=== PATIENT | female | born 2000 | race Caucasian/White ===

== ENCOUNTER 2022-04-10 11:27 | Emergency (ER) | payer OTHER, MEDICAID, SELFPAY ==
[2022-04-10 13:04] VITALS: BP 114/77; PULSE 130; RESP 20; TEMP 37.2; O2SAT 99
--- NOTE | 2022-04-10 13:40 | ED.URI ---
HPI - URI/Sore Throat General Chief Complaint: Upper Respiratory Infection Stated Complaint: bodyaches,cough,sorethroat Time Seen by Provider: 04/10/22 13:10 Source: patient Mode of arrival: ambulatory Limitations: no limitations History of Present Illness HPI Narrative: Chest is a 21-year-old female patient presenting to clinic today with complaints of body aches, cough, sore throat, mild shortness of breath with some chest tightness. She reports she does have a history of asthma. Has productive cough with yellow phlegm. MD elicited complaint: sore throat and nasal congestion Related Data Home Medications Medication Instructions Recorded Confirmed albuterol sulfate 90 mcg/actuation 1 puff inhalation PRN 04/10/22 04/10/22 aerosol inhaler Allergies Allergy/AdvReac Type Severity Reaction Status Date / Time No Known Allergies Allergy Verified 04/10/22 13:08 Review of Systems Review of Systems: Pertinent positives per HPI. Patient denies any fever, chills, rash, headache, visual changes, dizziness, chest pain, palpitations, nausea, vomiting, diarrhea, constipation, abdominal pain, or any urinary issues. PMFSH Comments At the time of my signature, I reviewed and agree with the nursing past medical, surgical, social, and family history. There is no relevant family history pertinent to the patient complaint. Exam Narrative: General: Well-developed, well nourished, in no apparent distress Head: Normocephalic, atraumatic Eyes: Pupils equally round and reactive to light bilaterally, EOM intact, sclera and conjunctive clear, no discharge, lids normal Ears: TMs intact and clear, ear canals clear, no drainage, grossly hearing normal. Nose: Nares patent, clear nasal discharge, no inflammation, no sinus tenderness. Mouth: Oral pharynx without lesions or masses, good dentition, MMM. Oropharynx red Neck: Supple, trachea midline, mild enlargement of anterior or posterior cervical nodes, no thyroid masses or goiter palpable. Cardio: Regular rate and rhythm, s1 and s2 normal, no murmur appreciated. Resp: Lung sounds diminished in the bases otherwise clear no rhonchi, rales, wheezing or rubs Course Course Emergency Course: Portions of this record may have been created with voice recognition software. Level of Care: Express Care Visit Vital Signs Vital signs: Vital Signs Temperature 37.2 C 04/10/22 13:04 Pulse Rate 130 H 04/10/22 13:04 Respiratory Rate 20 04/10/22 13:04 Blood Pressure 114/77 04/10/22 13:04 Pulse Oximetry 99 04/10/22 13:04 Oxygen Delivery Room Air 04/10/22 13:04 Temperature 37.2 C 04/10/22 13:04 Pulse Rate 130 H 04/10/22 13:04 Respiratory Rate 20 04/10/22 13:04 Blood Pressure 114/77 04/10/22 13:04 Pulse Oximetry 99 04/10/22 13:04 Oxygen Delivery Room Air 04/10/22 13:04 Vital signs reviewed MDM - URI/Sore Throat MDM Narrative Medical decision making narrative: At the time of the patient is resting comfortably on the exam table. She has lost her voice and sounds very congested. COVID, flu, and strep test were all negative in the clinic today. I suspect patient has bronchitis. Prescription for prednisone, azithromycin, and albuterol was sent to the pharmacy. Differential Diagnosis Differential diagnosis: Likely upper respiratory infection, otitis media, sinusitis, viral infection, bronchitis, influenza, pharyngitis and other (COVID) Discharge Plan Discharge Clinical Impression: Bronchitis Patient Disposition: Home, Self-Care Condition: Stable Instructions: Antibiotic Form, Acute Bronchitis (ED) Additional Instructions: Take prescription medications only as prescribed-azithromycin, prednisone, and albuterol inhaler Increase fluids and stay well hydrated Tylenol/motrin for pain/fever Flonase and OTC antihistamines as directed Vicks vapor rub to open sinuses Sinus rinses for congestion Cepacol spray, cough drops, throat loze
== END 2022-04-10 13:50 | disposition home or self-care (01) ==
PROVIDERS: Emergency Provider Nurse Practitioner Family
DX: J40 Bronchitis, not specified as acute or chronic (principal); Z20.822 Contact with and (suspected) exposure to COVID-19; J45.909 Unspecified asthma, uncomplicated
CPT/HCPCS: 87426; 87804; 87880; 99203; C9803; G0463

== ENCOUNTER 2023-08-04 11:05 | Emergency (ER) | payer MEDICAID, SELFPAY ==
[2023-08-04 11:18] VITALS: BP 117/88; PULSE 120; RESP 18; TEMP 36.9; O2SAT 100
--- NOTE | 2023-08-04 11:22 | ED.URI ---
HPI - URI/Sore Throat General Chief Complaint: Upper Respiratory Infection Stated Complaint: Cough,Shortness of Breath,Headadche,Body Pain Time Seen by Provider: 08/04/23 11:23 Source: patient, RN notes reviewed and old records reviewed Mode of arrival: ambulatory Limitations: no limitations History of Present Illness HPI Narrative: 23-year-old female presents to the [facility] with complaints of cough, shortness of breath, headache body aches. Symptoms started Sunday night however symptoms worse on 2 days ago. Has taken ibuprofen and taking cough drops. No other treatment prior to arrival Related Data Home Medications Medication Instructions Recorded Confirmed albuterol 90 mcg/actuation aerosol mcg inhalation 08/04/23 inhaler Allergies Allergy/AdvReac Type Severity Reaction Status Date / Time No Known Allergies Allergy Verified 08/04/23 11:26 Review of Systems Review of Systems: All systems reviewed & are unremarkable except as noted in HPI and below Constitutional: Constitutional: Reports as per HPI, Reports body ache(s) and Reports headache(s) Eyes: Eyes: Reports no additional eye complaints ENT: Reports as per HPI, Reports nasal discharge and Reports sore throat Cardiovascular: Cardiovascular: Reports no additional cardiovascular complaints, Denies chest pain and Denies dyspnea Respiratory: Respiratory: Reports as per HPI, Denies chest congestion, Reports cough, Reports dyspnea (Only after a coughing fit), Denies snoring, Denies stridor and Denies wheezing Gastrointestinal: Gastrointestinal: Reports no additional gastrointestinal complaints, Denies abdominal pain, Denies nausea and Denies vomiting Musculoskeletal: Musculoskeletal: Reports no additional musculoskeletal complaints Integumentary/Breasts: Skin/Breast: Reports system reviewed and no additional complaints, except as docu Neurologic: Reports system reviewed and no additional complaints, except as documented Psychiatric: Psychiatric: Reports no additional psychiatric complaints Allergic/Immunologic: Allergic/Immunologic: Reports no additional allergic/immunologic complaints [facility] Past Medical History Medical History (Updated 08/04/23 @ 13:00 by April Hernández APRN) Asthma Surgical History Surgical History (Updated 08/04/23 @ 13:00 by April Hernández APRN) History of orthopedic surgery Right leg Comments At the time of my signature, I reviewed and agree with the nursing past medical, surgical, social, and family history. There is no relevant family history pertinent to the patient complaint. Exam Const: General: cooperative, healthy appearing, comfortable, no acute distress, well developed, alert and well nourished Nutritional Appearance: well nourished Orientation/consciousness: patient oriented x3 Limitations: no limitations HENMT: Head: normal to inspection Ears: hearing grossly normal bilaterally, external ears normal, EAC's normal and TM abnormal with fluid behind the TM bilateral; not bulging and not erythematous Face/Nose/Sinus: Normal external nose present, Normal nares present, Normal nasal mucous membranes and turbinates present, Nasal discharge present clear bilateral, normal facial exam and face symmetric Face and sinus: normal facial exam, sinuses nontender, face symmetric, no erythema and no edema Mouth: Yes Normal oral and palatal mucosa present, Yes lip normal and Yes moist mucous membranes Throat: posterior oropharynx normal, tonsils normal, uvula midline, postnasal drainage and no uvular edema Eyes: General: appearance normal, both eyes and all related structures Alignment and Position: alignment normal Periorbital: periorbital findings normal Pupils: Equal, round and reactive pupils present EOM: EOMs intact bilaterally Neck: Neck: normal visual inspection, full ROM, no lymphadenopathy and no meningeal signs Chest: Chest palpation & inspection: normal inspection of the chest Resp: Effort
== END 2023-08-04 11:58 | disposition home or self-care (01) ==
PROVIDERS: Emergency Provider Nurse Practitioner
DX: J06.9 Acute upper respiratory infection, unspecified (principal); J45.909 Unspecified asthma, uncomplicated; Z20.822 Contact with and (suspected) exposure to COVID-19
CPT/HCPCS: 87081; 87426; 87804; 87880; 99213; G0463

== ENCOUNTER 2024-12-15 12:38 | Emergency (ER) | payer MEDICAID, SELFPAY ==
--- OUTSIDE RECORDS SUMMARY | 2024-12-15 12:42 | XMS_ITS | Encounter Summary ---
Author Organization [facility] Address [address] [place] [address] Care Team Providers Care Stretch Press Operator Name Role Phone Thomas Grant MD Primary Care Provider Unasparkle ilable Encounter Details Date Type Department Care Team (Late st Contact Info) Description 06/26/2006 Orders Only [facility] - [facility] [address] [id number] [facility] [address] [place] [address] Thomas Grant MD NO ADDRESS ON FILE Social History Tobacco Use Types Packs/Day Years Used Date Smoking Tobacco: Never Assessed Comments Unknown Sex and Gender Information Value Date Recorded Sex Assigned at Not on file Legal Sex Female 2:47 AM MULTIFOCAL LENS INSPECTOR Gender Identity Not on file Sexual Orientation Not on file documented as of this encounter Progress Notes * Thomas Grant MD - 08/30/2007 12:28 PM CDT PATIENT'S AGE: 6 yrs, 0 mths, 2 wks, 4 days VITALS: TEMP: 97.8??f Axillary PULSE: 96 Apical, Regular RESPIRATIONS: 20. WEIGHT: 42lbs NURSE NAME: Ashley Clemente A ACCOMPANIED BY: Mother. ALLERGIES: CURRENT ALLERGY LIST: NKDA MEDICATIONS: singulair, alb. neb CHIEF COMPLAINT: The child is here for follow up of lungs. HISTORY: Discharged from [facility] 1 week ago after treatment of asthma exacerbation. Doing very well with no cough or wheezing; eating, sleeping and playing well. PHYSICAL EXAM: CONSTITUTIONAL: GENERAL APPEARANCE: Healthy appearing, alert patient, normally nourished, developmentally normal and in no acute distress. EYES: CONJUNCTIVA/LIDS: Conjunctivae and lids appear normal. PUPILS: Pupils equal and round. EARS, NOSE, MOUTH AND THROAT: EXTERNAL/EARS AND NOSE: Overall appearance normal without lesions or masses. EARS: Tympanic membranes shiny without retraction. Canals unremarkable. Hearing grossly normal. NOSE (AND SINUS): No abnormality of the nose or sinuses is noted. ORAL: Inspection of gums, lips, palate, and dentition normal. No lesions or masses. Oral mucosa unremarkable with non-inflamed posterior pharynx. NECK: No lymphadenopathy noted. Supple. RESPIRATORY: Clear to auscultation. Normal respiratory effort. CARDIOVASCULAR: CARDIAC: Regular rhythm with no murmurs, rubs, gallops, or abnormal heart sounds. GASTROINTESTINAL: ABDOMEN: Soft, non-tender, without masses. Bowel sound active. LIVER/SPLEEN/KIDNEY: No hepatosplenomegaly. SKIN: INSPECTION: Good color, no rashes, birthmarks or lesions noted on arms, chest or abdomen. ASSESSMENT/PLAN: 493.00-EXTRINSIC ASTHMA STATUS: Improved. MEDICATIONS: SINGULAIR ORAL TABLET CHEWABLE 4 MG TABLETS, 1 Every Day, 30 Dispensed, 6 Fills, status: NEW PRESCRIPTION, 06/26/2006. Discontinue albuterol nebs; may restart them if symptoms return. RETURN VISIT/GUIDANCE: Patient is to return on an as needed basis or to call with concerns or changes in condition. Electronically Signed by: Thomas Grant MD on Monday, June 26, 2006 documented in this encounter Plan of Treatment Upcoming Encounters Date Type Department Care Team (Late st Contact Info) Description 06/05/2025 10:50 AM MULTIFOCAL LENS INSPECTOR Office Visit [facility] BALL [facility]ER [address] [place] [id number] Tere Maddox MD [address] [place] [address] [place] [address] documented as of this encounter Visit Diagnoses Not on filedocumented in this encounter Care Teams Stretch Press Operator Relationship Specialty Start Date End Date Thomas Grant MD NO ADDRESS ON FILE PCP - General 06/17/06 01/13/15 documented as of this encounter
--- OUTSIDE RECORDS SUMMARY | 2024-12-15 12:42 | XMS_ITS | Encounter Summary ---
Author Organization [facility] Address [address] [place] [address] Care Team Providers Care Bench Patternmaker Metal Name Role Phone Thomas Grant MD Primary Care Provider Unava ilable Encounter Details Date Type Department Care Team (Late Contact Info) Description 12/29/2003 Outpatient Historical [facility] Pediatrics - [facility] [address] [facility] [address] [address] Roni Ruiz MD [address] [facility] [place] [address] Social History Tobacco Use Types Packs/Day Years Used Date Smoking Tobacco: Never Assessed Comments Unknown Sex and Gender Information Value Date Recorded Sex Assigned at Not on file Legal Sex Female 2:47 AM MULTIMEDIA SERVICES MANAGER Gender Identity Not on file Sexual Orientation Not on file documented as of this encounter Plan of Treatment Upcoming Encounters Date Type Department Care Team (Late st Contact Info) Description 06/05/2025 10:50 AM MULTIMEDIA SERVICES MANAGER Office Visit [facility] ANIMAL ANATOMIST [address] [address] Tere Maddox MD [address] [place] [address] [facility] [address] [place] [address] documented as of this encounter Procedures Procedure Name Priority Date/Time Associated Diagnosis Comments CHG DTAP VACCINE <7 YO IM VFC 12/29/2003 12:00 AM CDT CHG PNEUMOCOCCAL VACCINE <5 YO IM VFC 12/29/2003 12:00 AM CDT CHG HIB PRP-T VACCINE IM 4 DOSE VFC 12/29/2003 12:00 AM CDT documented in this encounter Visit Diagnoses Not on filedocumented in this encounter Care Teams Bench Patternmaker Metal Relationship Specialty Start Date End Date Thomas Grant MD NO ADDRESS ON FILE PCP - General 06/17/06 01/13/15 documented as of this encounter
--- OUTSIDE RECORDS SUMMARY | 2024-12-15 12:42 | XMS_ITS | Clinical Summary ---
Author Organization [facility] Address [address] [place] [address] Care Team Providers Care Engineering Faculty Name Role Phone Shalom Truong DO Primary Care Provider [phone] Trinity Vera MD Unavailable [phone] Source Comments [facility],non-owned Affiliates and Associated Physician Practices is amultiple site organization consisting of ambulatory clinics and hospital sitesin [place], [place], [place] and [place]. This disclosure is being madepursuant to the Care Everywhere program and may not contain all information available regarding this patient. Last updated 17.[facility] Allergies No known active allergies Medications * Be aware that medications may not be up to date on this document. Alwaysverify current medications with the patient. albuterol HFA (PROVENTIL;BERNARD TOLIN;PROAIR) 108 (90 BASE) MCG/ACT inhaler Inhale 2 (two) puffs by mouth every 6 hours as needed Active fluticasone propionate (FLONASE) 50 MCG/ACT nasal spray [place] 2 (two) sprays into each nostril once daily Active oxyCODONE, immediate release, (Roxicodone) 5 MG tabletIndicati ons:Retained orthopedic hardware Take 1 (one) tablet by mouth every 6 hours as needed for Pain 24 tablet 4 Active acetaminophen (Tylenol) 500 MG tablet Take 2 (two) tablets by mouth every 6 hours Maximum allowable Acetaminophen amount = 4 Grams (4000 mg) / 24 hours. 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 Questions solicited and answered. 2. Continue with existing conservative treatment program. Will schedule surgery. 3. Medications Prescribed: OTC analgesics, none 4. Activity Restrictions: none 5. Weightbearing status: No Restrictions 6. Follow up: will call with pre-admission testing instructions and to schedule surgery Tibia/fibula fracture, right , closed, with nonunion, subsequent encounter 10/25/2018 Right external tibial torsion 05/07/2018 Acute postoperative pain Pain of right lower extremity Right foot pain Hammer toe of right foot Acquired hallux malleus of right foot Aftercare involving removal of external fixation device Actinic keratosis Immunizations Immunization Administration Dates Next Due INFLUENZA VACCINE, TRIV. (AF LURIA, FLUZONE TRIVALENT; 6MO+) (IIV3) 03/13/2003 DTaP VACCINE IM (6wk-6yrs) 07/25/2007,,01/02/2003,10/31,2002 FLU VACCINE TRI IIV3 SPLIT P F IM (FLUVIRIN) 03/13/2011,02/15/2010,02/13/2008 HEP A PEDS 2 DOSE 12/01/2005,10/31/2004 HEP B VACCINE, PED/ADOL 02/15/2010,10/31,2002,06/09 HIB-PRP-T 4 DOSE 12/29/2003,2002, 3 Human Papilloma Virus Nineva lent Vaccine 01/27/2015 Human Papilloma Virus Bowen valent Vaccine 12/20/2013 INFLUENZA VACCINE 03/05/2023 INFLUENZA VACCINE, QUADR. (F LUZONE; FLULAVAL; FLUARIX; AFLURIA QUADRIVALENT; 6MO+), 0.5 ML (IIV4) 01/27/2015 MENINGOCOCCAL ACWY MENVEO 12/20/2013 MMR 07/25/2007,06/11/2003 PNEUMOCOCCAL PCV7 CONJ, PEDS 12/29/2003, 01/02/2003,2002,08/12 POLIO IPV 07/25/2007, 3,2002,08/12 TDAP (7yrs+) 12/20/2013 VARICELLA 07/25/2007,06/11/2003 Social History Tobacco Use Types Packs/Day Years Used Date Smoking Tobacco: Never Smokeless Tobacco: Never Tobacco Cessation:Counseling Given: Not Answered Comments:parents smoke cigarettes outside Alcohol Use Standard Drinks/Week Comments Yes 0 (1 standard drink = 0.6 oz pur e alcohol) occassional AUDIT-C Answer Date Recorded Q1: How often do you have a drink containing alc ohol? Monthly or less 12/21/2023 Q2: How many drinks containi ng alcohol do you have on a typical day when you are drinking? 1 or 2 12/21/2023 Q3: How often do you have si x or more drinks on one occasion? Never 12/21/2023 PHQ-2 Answer Date Recorded Patient Health Questionnaire-2 Score 0 12/05/2023 Comments No Sex and Gender Information Value Date Recorded Sex Assigned at Not on file Legal Sex Female 1:07 PM CDT Gender Identity Not on file Sexual Orientation Not on file Last Filed Vital Signs Vital Sign Reading Time Taken Comments Blood Pressure 100/59 12/21/2023 10:40 AM CDT Pulse 64 12/21/2023 10:40 AM CDT Temperature 36.6 C (97.8 F) 12/21/2023 9:38 AM CDT Respiratory Rate 16 12/21/2023 10:40 AM CDT Oxygen Saturation 97% 12/21/2023 10:40 AM CDT Inhaled Oxygen Concentration 40% 12/21/2023 8 :01 AM CDT Weight 54 kg (119 lb) 01/02/2024 2:29 PM CDT Height 165.1 cm (5' 5) 01/02/2024 2:29 PM CDT Body Mass Index 19.8 01/02/2024 2:29 PM CDT Plan of Treatment Health Maintenance Due Date Last Done Comments HIV SCREENING 2017 CHLAMYDIA/GONORRHEA SCREENING 2018 MENINGOCOCCAL (Group B) VACCINE SHARED DECISION-MAKING (1 of 2 - Standard) 2018 HEPATITIS C SCREENING 06/04/2020 PAP SMEAR 06/10/2023 DTAP/TDAP/TD VACCINES (7 - Td or Tdap) 12/21/2023 12/20/2013, 07/25/2007, 12/29/2003, Additional history exists DEPRESSION SCREENING 04/09/2024 12/05/2023 COVID-19 VACCINE ( season) 2024 INFLUENZA VACCINE (#1) 2024 , 01/27/2015, 03/13/2011, Additional history exists ZOSTER VACCINE (1 of 2) 2052 HIB VACCINE Completed 12/29/2003, 10/08, 2002 PNEUMOCOCCAL VACCINE Completed 12/29/2003, 01/02/2003, 2002, Additional history exists HEPATITIS B VACCINE Completed 02/15/2010, 2002, 2002, Additional history exists MENINGOCOCCAL GROUPS A/C/Y/W VACCINE Aged Out 12/20/2013 No longer eligible based on patient's age to complete this topic HPV VACCINE Completed 01/27/2015, 12/20/2013 Medical Devices Implanted Type Area Ladies Suit Operator Device Identifier Shelf Expiration Date Model / Serial / Lot Screw 3.5mm 14mm Fem Jass Dist T15 Implanted:Qty: 3 on 10/25/2018 by Khoi Mulligan MD at [facility] Right: [employer] / / Op Pedi Frag 3.5mm Locking Plate 5 Hole Implanted:Qty: 1 on 10/25/2018 by Khoi Mulligan MD at [facility] Right: Tibia / / Plate Jose 66mm 3 Hl Lck Comp 3.5mm Screw Implanted:Qty: 1 on 10/25/2018 by Khoi Mulligan MD at [facility] Right: [employer] [id number] / / Screw 3.5mm 34mm T15 Fem Jass Prox Lck Implanted:Qty: 1 on 10/25/2018 by Khoi Mulligan MD at [facility] Right: [employer] [id number] / / Screw 3.5mm 22mm Fem Jass Dist T15 Implanted:Qty: 1 on 10/25/2018 by Khoi Mulligan MD at [facility] Right: [employer] [id number] / / Screw 3.5mm 34mm T15 Fem Jass Prox Implanted:Qty: 2 on 10/25/2018 by Khoi Mulligan MD at [facility] Right: [employer] [id number] / / Screw 3.5mm 36mm T15 Fem [employer]x Implanted:Qty: 1 on 10/25/2018 by Khoi Mulligan MD at [facility] Right: [employer] [id number] / / Screw 3.5mm 12mm Fem Jass Dist T15 Implanted:Qty: 2 on 10/25/2018 by Khoi Mulligan MD at [facility] Right: [employer] / / Wire K 1.6mm 150mm 1 End Troc Pnt Ss Sm Implanted:Qty: 1 on 08/09/2020 by Grant Cervantes MD at [facility] [employer] [id number] / / Explanted Type Area Ladies Suit Operator Device Identifier Shelf Expiration Date Model / Serial / Lot K Wire 1.6mm X 152mm Explanted:Qty: 2 on 08/09/2020 by Karen Majano MD at [facility] Wire Right: Foot 05/25/2024 [id number] / / [id number] 1.8mm Diameter, 370mm Wire Implanted:Qty: 2 on 08/09/2020 by Grant Cervantes MD at [facility] Explanted:Qty: 2 on 11/12/2020 by Grant Cervantes MD at [facility] Wire Right: Leg [employer] [id number] / / Wire K 2mm 150mm Troc Pnt Ss Orth Fx Explanted:Qty: 2 on 05/23/2018 by Trinity Vera MD at [facility] Right: [employer] [id number] / / 5h Right 72mm Plate Implanted:Qty: 1 on 05/23/2018 by Trinity Vera MD at [facility] Explanted:Qty: 1 on 10/25/2018 by Khoi Mulligan MD at [facility] Right: [employer] [id number] / / 36mm Locking Screw Implanted:Qty: 1 on 05/23/2018 by Trinity Vera MD at [facility] Explanted:Qty: 1 on 10/25/2018 by Khoi Mulligan MD at [facility] Right: [employer] [id number] / / 20mm Cortex Screw Implanted:Qty: 1 on 05/23/2018 by Trinity Vera MD at [facility] Explanted:Qty: 1 on 10/25/2018 by Khoi Mulligan MD at [facility] Right: [employer] [id number] / / 22mm Cortex Screw Implanted:Qty: 1 on 05/23/2018 by Trinity Vera MD at [facility] Explanted:Qty: 1 on 10/25/2018 by Khoi Mulligan MD at [facility] Right: [employer] [id number] / / 24mm Cortex Screw Implanted:Qty: 1 on 05/23/2018 by Trinity Vera MD at [facility] Explanted:Qty: 1 on 10/25/2018 by Khoi Mulligan MD at [facility] Right: [employer] [id number] / / 36mm Cortex Screw Implanted:Qty: 1 on 05/23/2018 by Trinity Vera MD at [facility] Explanted:Qty: 1 on 10/25/2018 at [facility] Right: [employer] [id number] / / 28mm Osteopenia Screw Implanted:Qty: 1 on 05/23/2018 by Trinity Vera MD at [facility] Explanted:Qty: 1 on 10/25/2018 at [facility] Right: [employer] [id number] / / Pin Hlf 150mm 6mm Jeffers 30mm Extfix Sys Implanted:Qty: 1 on 08/09/2020 by Grant Cervantes MD at [facility] Explanted:Qty: 1 on 11/12/2020 at [facility] Right: [employer] 12/19/2028 [id number] / / [id number] Pin Hlf 150mm 6mm Jeffers 40mm Extfix Sys Implanted:Qty: 1 on 08/09/2020 by Grant Cervantes MD at [facility] Explanted:Qty: 1 on 11/12/2020 by Grant Cervantes MD at [facility] Right: [employer] 05/07/2029 [id number] / / [id number] Pin Hlf 150mm 6mm Jeffers 30mm Extfix Sys Implanted:Qty: 1 on 08/09/2020 by Grant Cervantes MD at [facility] Explanted:Qty: 1 on 11/12/2020 by Grant Cervantes MD at [facility] Right: [employer] 11/13/2028 [id number] / / [id number] Pin Hlf 150mm 6mm Jeffers 40mm Extfix Sys Implanted:Qty: 1 on 08/09/2020 by Grant Cervantes MD at [facility] Explanted:Qty: 1 on 11/12/2020 by Grant Cervantes MD at [facility] Right: [employer] 02/26/2029 [id number] / / [id number] 1.8mm 400mm Wire Implanted:Qty: 1 on 08/09/2020 by Grant Cervantes MD at [facility] Explanted:Qty: 1 on 11/12/2020 by Grant Cervantes MD at [facility] Right: [employer] [id number] / / Screw 3.5mm 50mm 2.5mm Slf-Tap Sm Hex Implanted:Qty: 1 on 08/09/2020 by Grant Cervantes MD at [facility] Explanted:Qty: 1 on 12/21/2023 at [facility] [employer] [id number] / / Insurance [place] [employer] [place] [place] COUNTS INCLUDE 234 BEDS AT THE [facility] [place] MEDICAID - [facility] [facility] COMMUNITY PLAN Advance Directives * Full Code (Latest Code Status on File) Date Activated Date Inactivated Comments 08/09/2020 4:10 PM 08/11/2020 12:12 PM * Full Code Date Activated Date Inactivated Comments 06/12/2019 1:24 PM 06/13/2019 12:04 PM * Full Code Date Activated Date Inactivated Comments 10/25/2018 8:11 PM 10/26/2018 1:47 PM * Full Code Date Activated Date Inactivated Comments 05/23/2018 3:46 PM 05/25/2018 4:02 PM Care Teams Engineering Faculty Relationship Specialty Start Date End Date Shalom Truong DO [address] [place] [address] PCP - General Family Medicine 07/03/16 Trinity Vera MD [address] [place] [address] Orthopedic Surgery Orthopedic Surgery 12/06/18
--- OUTSIDE RECORDS SUMMARY | 2024-12-15 12:42 | XMS_ITS | Encounter Summary ---
Author Organization [facility] Address [address] [place] [address] Care Team Providers Care Business Development Agent Name Role Phone Thomas Grant MD Primary Care Provider Unava ilable Encounter Details Date Type Department Care Team (Late st Contact Info) Description 09/19/2003 Outpatient Historical [facility] Pediatrics - Medical [address] [facility] [address] [phone] Noble Jacome MD NO ADDRESS ON FILE Social History Tobacco Use Types Packs/Day Years Used Date Smoking Tobacco: Never Assessed Comments Unknown Sex and Gender Information Value Date Recorded Sex Assigned at Not on file Legal Sex Female 2:47 AM PROGRAM DIRECTOR GROUP WORK Gender Identity Not on file Sexual Orientation Not on file documented as of this encounter Plan of Treatment Upcoming Encounters Date Type Department Care Team (Late st Contact Info) Description 06/05/2025 10:50 AM PROGRAM DIRECTOR GROUP WORK Office Visit [facility] [employer] HITCH DRIVER [address] [place] [address] Tere Maddox MD [address] [place] [address] [facility] [address] [place] [address] documented as of this encounter Visit Diagnoses Not on filedocumented in this encounter Care Teams Business Development Agent Relationship Specialty Start Date End Date Thomas Grant MD NO ADDRESS ON FILE PCP - General 06/17/06 01/13/15 documented as of this encounter
--- OUTSIDE RECORDS SUMMARY | 2024-12-15 12:42 | XMS_ITS | Encounter Summary ---
Author Organization [facility] Address [address] [place] [address] Care Team Providers Care Machine Stripper Cutter Name Role Phone Thomas Grant MD Primary Care Provider Unava ilable Encounter Details Date Type Department Care Team (Late Contact Info) Description 06/17/2006 Outpatient Historical [facility] Department of Peds at [address] [phone] May Pérez MD NO ADDRESS ON FILE Social History Tobacco Use Types Packs/Day Years Used Date Smoking Tobacco: Never Assessed Comments Unknown Sex and Gender Information Value Date Recorded Sex Assigned at Not on file Legal Sex Female 2:47 AM SHAKER SCREEN OPERATOR Gender Identity Not on file Sexual Orientation Not on file documented as of this encounter Plan of Treatment Upcoming Encounters Date Type Department Care Team (Late Contact Info) Description 06/05/2025 10:50 AM SHAKER SCREEN OPERATOR Office Visit [facility] LOG HOOKER [address] [place] [address] Tere Maddox MD [address] [place] [address] [facility] [address] [place] [address] documented as of this encounter Visit Diagnoses Not on filedocumented in this encounter Care Teams Machine Stripper Cutter Relationship Specialty Start Date End Date Thomas Grant MD NO ADDRESS ON FILE PCP - General 06/17/06 01/13/15 documented as of this encounter
--- OUTSIDE RECORDS SUMMARY | 2024-12-15 12:42 | XMS_ITS | Encounter Summary ---
Author Organization [facility] Address [address] [place] [address] Care Team Providers Care Wallpaperer Name Role Phone Thomas Grant MD Primary Care Provider Nancy ilable Encounter Details Date Type Department Care Team (Late st Contact Info) Description 01/01/2007 Orders Only [facility] Pediatrics - [facility] [address] [address] [facility] [address] [place] [address] Thomas Grant MD NO ADDRESS ON FILE Social History Tobacco Use Types Packs/Day Years Used Date Smoking Tobacco: Never Assessed Comments Unknown Sex and Gender Information Value Date Recorded Sex Assigned at Not on file Legal Sex Female 2:47 AM FLORAL DESIGNER Gender Identity Not on file Sexual Orientation Not on file documented as of this encounter Progress Notes * Thomas Grant MD - 08/23/2007 6:53 PM CDT PATIENT'S AGE: 6 yrs, 6 mths, 3 wks, 1 day VITALS: PULSE OXIMETRY:97. TEMP: 98??f Axillary PULSE: 124 Apical, Regular RESPIRATIONS: 18. WEIGHT: 43lbs NURSE NAME: Siobhan Mariela ACCOMPANIED BY: Mother. ALLERGIES: CURRENT ALLERGY LIST: NKDA MEDICATIONS: Singulair, Triaminic CHIEF COMPLAINT: The child is here for evaluation of cough, fever, runny nose, watery eyes, vomiting. HISTORY: HPI: COUGH: The symptoms began approximately 2 days ago. The degree of the fever has been up to 103, thepatient has a nasal drainage, the patient has vomiting. PHYSICAL EXAM: CONSTITUTIONAL: GENERAL APPEARANCE: Healthy appearing, alert patient, normally nourished, developmentally normal and in no acute distress. EYES: CONJUNCTIVA/LIDS: Conjunctivae and lids appear normal. PUPILS: Pupils equal and round. EARS, NOSE, MOUTH AND THROAT: EXTERNAL/EARS AND NOSE: Overall appearance normal without lesions or masses. EARS: REDUCED LIGHT REFLEX. LANDMARKS PARTIALLY OBSCURED IN THE LEFT EAR, RIGHT TYMPANIC MEMBRANE SLIGHTLY INFLAMED. NOSE (AND SINUS): No abnormality of the nose or sinuses is noted. ORAL: Inspection of gums, lips, palate, and dentition normal. No lesions or masses. Oral mucosa unremarkable with non-inflamed posterior pharynx. NECK: No lymphadenopathy noted. Supple. RESPIRATORY: Clear to auscultation. Normal respiratory effort. Frequent nonproductive, slightly croupy cough. CARDIOVASCULAR: CARDIAC: Regular rhythm with no murmurs, rubs, gallops, or abnormal heart sounds. GASTROINTESTINAL: ABDOMEN: Soft, non-tender, without masses. Bowel sound active. LIVER/SPLEEN/KIDNEY: No hepatosplenomegaly. SKIN: INSPECTION: Good color, no rashes, birthmarks or lesions noted on arms, chest or abdomen. ASSESSMENT/PLAN: 464.4-CROUP 382.00-OTITIS MEDIA ACUTE SUPPURATIVE Comments: right - amoxicillin MEDICATIONS: AMOXICILLIN ORAL SUSPENSION WHEN RECONSTITUTED 400 MG/5ML MILLILITERS, 6 ml. BID for 10 days., 150 Dispensed, status: NEW PRESCRIPTION, 01/01/2007. ORAPRED ORAL SOLUTION 15 MG/5ML MILLILITERS, 6.5 ml BID for 4 days, 60 Dispensed, status: NEW PRESCRIPTION, 01/01/2007. HISTUSSIN HC ORAL SYRUP 5-2-2.5 MG/5ML FLUIDOUNCES, One teaspoon q4-6h prn cough and congestion, 4 Dispensed, status: NEW PRESCRIPTION, 01/01/2007. RETURN VISIT/GUIDANCE: Patient is to return on an as needed basis or to call with concerns or changes in condition. Electronically Signed by: Thomas Grant MD on Monday, January 01, 2007 documented in this encounter Plan of Treatment Upcoming Encounters Date Type Department Care Team (Late st Contact Info) Description 06/05/2025 10:50 AM FLORAL DESIGNER Office Visit [facility] [employer] TEACHER [address] [place] [address] [place] [address] [place] [address] documented as of this encounter Visit Diagnoses Not on filedocumented in this encounter Care Teams Wallpaperer Relationship Specialty Start Date End Date Thomas Grant MD NO ADDRESS ON FILE PCP - General 06/17/06 01/13/15 documented as of this encounter
--- OUTSIDE RECORDS SUMMARY | 2024-12-15 12:42 | XMS_ITS | Encounter Summary ---
Author Organization [facility] Address [address] [place] [address] Care Team Providers Care Special Education Inclusion Teacher Name Role Phone Thomas Grant MD Primary Care Provider Unasparkle ilable Encounter Details Date Type Department Care Team (Late st Contact Info) Description 12/11/2006 Orders Only [facility] [address] [place] [address] Thomas Grant MD NO ADDRESS ON FILE Social History Tobacco Use Types Packs/Day Years Used Date Smoking Tobacco: Never Assessed Comments Unknown Sex and Gender Information Value Date Recorded Sex Assigned at Not on file Legal Sex Female 2:47 AM POT ROOM SUPERVISOR Gender Identity Not on file Sexual Orientation Not on file documented as of this encounter Progress Notes * Thomas Grant MD - 08/23/2007 3:43 PM CDT PATIENT'S AGE: 6 yrs, 6 mths, 0 wks, 1 day VITALS: TEMP: 98.8??f Tympanic PULSE: 100 Apical, Regular RESPIRATIONS: 20. WEIGHT: 43lbs NURSE NAME: Erika Uribe L ACCOMPANIED BY: Mother. ALLERGIES: CURRENT ALLERGY LIST: NKDA MEDICATIONS: RN/MA reviewed medications. Dimetapp CHIEF COMPLAINT: The child is here for evaluation of cough, fever, vomiting. HISTORY: Fever and vomiting began last night after having has cold symptoms for several days. Last emesis was this morning. Complaining of left side abdominal pain. PHYSICAL EXAM: CONSTITUTIONAL: GENERAL APPEARANCE: Healthy appearing, [...] Soft, non-tender, without masses. Bowel sound active. CVA TENDERNESS PRESENT ON THE LEFT. LIVER/SPLEEN/KIDNEY: No hepatosplenomegaly. SKIN: INSPECTION: Good color, no rashes, birthmarks or lesions noted on arms, chest or abdomen. OFFICE PROCEDURE: URINALYSIS RESULTS WBC: WBC`s were trace. NITRITE: nitrites were negative. UROBILINOGEN urobilinogen was normal. PROTEIN: protein was negative. pH: pH was 5. U/A BLOOD: blood was +++. SPECIFIC GRAVITY: specific gravity was 1.025. KETONES: ketones were large. BILIRUBIN: bilirubin was negative. GLUCOSE: glucose was negative. ASSESSMENT/PLAN: 599.0-URINARY TRACT INFECTION MEDICATIONS: SEPTRA ORAL SUSPENSION 200-40 MG/5ML MILLILITERS, 10 ml. BID for 10 days., 200 Dispensed, status: NEW PRESCRIPTION, 12/11/2006. LAB ORDERS: Order number: [id number] Test Ordered: URINALYSIS W/O MICRO [id number] Order number: [id number] Test Ordered: CULTURE, URINE [id number] RETURN VISIT/GUIDANCE: Will call in 2 days with culture results. Electronically Signed by: Thomas Grant MD on Monday, December 11, 2006 documented in this encounter Plan of Treatment Upcoming Encounters Date Type Department Care Team (Elizabeth Contact Info) Description 06/05/2025 10:50 AM POT ROOM SUPERVISOR Office Visit [facility] [address] [facility] [address] [place] [address] [place] [address] [place] [address] documented as of this encounter Visit Diagnoses Not on filedocumented in this encounter Care Teams Special Education Inclusion Teacher Relationship Specialty Start Date End Date Thomas Grant MD NO ADDRESS ON FILE PCP - General 06/17/06 01/13/15 documented as of this encounter
--- OUTSIDE RECORDS SUMMARY | 2024-12-15 12:42 | XMS_ITS | Encounter Summary ---
Author Organization [facility] Address [address] [place] [address] Care Team Providers Care Belt Operator Name Role Phone Thomas Grant MD Primary Care Provider Unava ilable Encounter Details Date Type Department Care Team (Late Contact Info) Description 01/20/2004 Outpatient Historical [facility] Pediatrics - [facility] [place] [address] [facility] [address] [place] [address] Roni Ruiz MD [address] [facility] [place] [place] [address] Social History Tobacco Use Types Packs/Day Years Used Date Smoking Tobacco: Never Assessed Comments Unknown Sex and Gender Information Value Date Recorded Sex Assigned at Not on file Legal Sex Female 2:47 AM DELIVERY REPRESENTATIVE Gender Identity Not on file Sexual Orientation Not on file documented as of this encounter Plan of Treatment Upcoming Encounters Date Type Department Care Team (Late st Contact Info) Description 06/05/2025 10:50 AM DELIVERY REPRESENTATIVE Office Visit [facility] RAILWAY SWITCHMAN [address] [address] Tere Maddox MD [address] [place] [address] [facility] [address] [place] [address] documented as of this encounter Visit Diagnoses Not on filedocumented in this encounter Care Teams Belt Operator Relationship Specialty Start Date End Date Thomas Grant MD NO ADDRESS ON FILE PCP - General 06/17/06 01/13/15 documented as of this encounter
--- OUTSIDE RECORDS SUMMARY | 2024-12-15 12:42 | XMS_ITS | Encounter Summary ---
Author Organization [facility] Address [address] [place] [address] Care Team Providers Care Phlebotomy Lab Assistant Name Role Phone Thomas Grant MD Primary Care Provider Unava ilable Encounter Details Date Type Department Care Team (Late st Contact Info) Description 06/16/2006 Orders Only [facility] Pediatrics - [facility] [address] [address] [facility] [address] [place] [address] Thomas Grant MD NO ADDRESS ON FILE Social History Tobacco Use Types Packs/Day Years Used Date Smoking Tobacco: Never Assessed Comments Unknown Sex and Gender Information Value Date Recorded Sex Assigned at Not on file Legal Sex Female 2:47 AM MARINA DRY DOCK MANAGER Gender Identity Not on file Sexual Orientation Not on file documented as of this encounter Progress Notes * Thomas Grant MD - 08/30/2007 10:44 AM CDT TIME:10:23 am PATIENT`S HOME PHONE: PATIENT`S WORK PHONE: PATIENT`S INSURANCE: [employer] ([employer] WHO TOOK THE CALL: Patrizia Ruelas A PATIENT'S AGE: 6 yrs, 0 mths, 1 wk, 1 day GENERAL INFORMATION PCP: 3476. ALTERNATIVE PHONE NUMBER: [phone] WHO CALLED: Patient`s mother called. CURRENT ALLERGY LIST: Patient reports no known allergies. PHARMACY NUMBER: [phone] CURRENT MEDICATIONS: Dimetapp SECTION 1: REQUESTED ACTION: ally 06/16/06 at 10:25 am pt has been coughing for past 3 days, the cough is getting no better mom reports the cough as constant and stating she is getting no relief from otc and was wanting an rx, mom stated there is no resp distress of wheezing, please advise RN/RN ORTHOPAEDIC RESPONSE: ally 06/16/06 at 10:28 am Do you want to try Delsym ( ins is [facility] i think Tussi 12 is not covered) For now rec hard candy and warm liquids DOCTOR`S RESPONSE: kamran 06/16/06 at 10:38 am MEDICATIONS: Call in to Pharmacy DELSYM ORAL LIQUID CONTROLLED RELEASE 30 MG/5ML OUNCE, One teaspoon q12h prn cough, 4 Dispensed, status: NEW PRESCRIPTION, 06/16/2006. FINAL ACTION: calin 06/16/06 at 11:31 am Spoke with patient 06/16/06 at 11:31 am. Called pharmacy at 06/16/06 at 11:31 am. spoke with Darlin Electronically Signed by: Ashley Clemente RN on Friday, June 16, 2006 documented in this encounter Plan of Treatment Upcoming Encounters Date Type Department Care Team (Late st Contact Info) Description 06/05/2025 10:50 AM MARINA DRY DOCK MANAGER Office Visit [facility] MAIL INSERTER [address] [address] Tere Maddox MD [address] [place] [address] [address] documented as of this encounter Visit Diagnoses Not on filedocumented in this encounter Care Teams Phlebotomy Lab Assistant Relationship Specialty Start Date End Date Thomas Grant MD NO ADDRESS ON FILE PCP - General 06/17/06 01/13/15 documented as of this encounter
--- OUTSIDE RECORDS SUMMARY | 2024-12-15 12:42 | XMS_ITS | Encounter Summary ---
Author Organization [facility] Address [address] [place] [address] Care Team Providers Care Guest Relations Agent Name Role Phone Thomas Grant MD Primary Care Provider Nancy ilable Encounter Details Date Type Department Care Team (Latest Contact Info) Description 06/17/2006 Inpatient Historical [facility] Thomas Grant MD NO ADDRESS ON FILE Pneumonia, Organism Unspecified (Primary Dx) Social History Tobacco Use Types Packs/Day Years Used Date Smoking Tobacco: Never Assessed Comments Unknown Sex and Gender Information Value Date Recorded Sex Assigned at Not on file Legal Sex Female 2:47 AM WATER CONTROL STATION ENGINEER Gender Identity Not on file Sexual Orientation Not on file documented as of this encounter Plan of Treatment Upcoming Encounters Date Type Department Care Team (Late st Contact Info) Description 06/05/2025 10:50 AM WATER CONTROL STATION ENGINEER Office Visit [facility] ENGINEERING ASSISTANT [address] [place] [address] Tere Maddox MD [address] [place] [address] [facility] [address] [place] [address] documented as of this encounter Procedures Procedure Name Priority Date/Time Associated Diagnosis Comments MYCOPLASMA IGM Routine 06/17/2006 3:21 PM CDT MYCOPLASMA IGG Routine 06/17/2006 3:21 PM CDT CBC WITH DIFFERENTIAL Routine 06/17/2006 3:21 PM CDT CBC WITH DIFFERENTIAL Routine 06/17/2006 3:21 PM CDT CBC WITH DIFFERENTIAL Routine 06/17/2006 3:21 PM CDT COMPREHENSIVE METABOLIC PANEL Routine 06/17/2006 3:21 PM CDT documented in this encounter Results * MYCOPLASMA IGM (06/17/2006 3:21 PM CDT) [facility] MYCOPLASMA IGM 314 <770 U/mL INTER FACE SYSTEM Comment: Reference Range: <770 U/ml Negative 770-950 U/mL Low positive >950 U/mL Positive Lab test performed by: [employer] [address] CHANDRA SMITH MD 06/17/2006 3:21 PM CDT Castro Mcrae MD CHEMISTRY ORDERABLES Edited Performing Organization Address [facility] de Phone Number INTERFACE SYSTEM Refer to clinic/hospital department * MYCOPLASMA IGG (06/17/2006 3:21 PM CDT) [facility] MYCOPLASMA IGG <=0.90 <=0.90 [facility] Comment: Reference Ranges: <=0.90 Negative - no Mycoplasma Pneumonia Antibody detected 0.91-1.09 Equivocal >=1.10 Positive - Mycoplasma Pneumoniae Antibody detected A positive result indicates that the patient has antibody to Mycoplasma. It does not differentiate between an active or past infection. The clinical diagnosis must be interpreted with the clinical signs and symptoms of the patient. Lab test performed by: [employer] [facility] [id number] [place], [place] CHANDRA SMITH MD 06/17/2006 3:21 PM CDT Castro Mcrae MD CHEMISTRY ORDERABLES Edited Performing Organization Address [facility] de Phone Number INTERFACE SYSTEM Refer to clinic/hospital department * (ABNORMAL) CBC WITH DIFFERENTIAL (06/17/2006 3:21 PM CDT) [facility] NEUTROPHIL ABSOLUTE 5.10 K/uL INTERFACE SYSTEM LYMPHOCYTE ABSOLUTE 1.07 K/uL INTERFACE SYSTEM MONOCYTE ABSOLUTE 0.13 K/uL INTERFACE SYSTEM EOSINOPHIL ABSOLUTE 0.00 K/uL INTERFACE SYSTEM BASOPHILS ABSOLUTE 0.00 K/uL INTERFACE SYSTEM NEUTROPHILS, SEG 78(H) 36 - 74 % INT ERFACE SYSTEM BANDS 3 0 - 4 % INTERFACE SYSTEM LYMPHOCYTES 15(L) 18 - 53 % INTERFAC E SYSTEM MONOCYTES 2 2 - 13 % INTERFACE SYSTEM EOSINOPHILS 0(L) 2 - 12 % INTERFAC E SYSTEM BASOPHILS 0 0 - 3 % INTERFACE SYSTEM ATYPICAL LYMPHOCYTE 2 0 - 5 % INTERFACE SYSTEM PLATELET EST. Consistent w/ count Normal INTERFACE SYSTEM ANISOCYTOSIS Slight INTERFA CE SYSTEM POIKILOCYTES Slight INTERFA CE SYSTEM 06/17/2006 3:21 PM CDT Castro Mcrae MD HEMATOLOGY ORDERABLES Edited Performing Organization Address City/[facility] Co de Phone Number INTERFACE SYSTEM Refer to clinic/hospital department * CBC WITH DIFFERENTIAL (06/17/2006 3:21 PM CDT) [facility] NRBC 0 <=0 /100 WBC INTERFACE SYSTEM 06/17/2006 3:21 PM CDT Castro Mcrae MD HEMATOLOGY ORDERABLES Edited Performing Organization Address City/[facility]/ZIP Co de Phone Number INTERFACE SYSTEM Refer to clinic/hospital department * (ABNORMAL) CBC WITH DIFFERENTIAL (06/17/2006 3:21 PM CDT) Pathologist [facility] WBC 6.3 6.0 - 15.5 K/uL INTERFACE SYSTEM RBC 4.33 3.90 - 5.30 M/uL INTERFACE SYSTEM HEMOGLOBIN 12.0 11.5 - 13.5 g/dL INTERFACE SYSTEM HEMATOCRIT 36.0 34.0 - 40.0 % INTERFACE SYSTEM MCV 83.1 75.0 - 87.0 fL INTERFACE SYSTEM MCH 27.7 22.0 - 28.0 pg INTERFACE SYSTEM MCHC 33.3 30.0 - 36.0 % INTERFACE SYSTEM RDW 12.7 11.5 - 14.5 % INTERFACE SYSTEM RDW-STDEV 38.7 37.1 - 48.7 fL INTERFACE SYSTEM PLATELETS 224 140 - 350 K/uL INTERFACE SYSTEM MPV 9.2(L) 9.3 - 12.4 fL INTERFACE SYSTEM 06/17/2006 3:21 PM CDT Castro Mcrae MD HEMATOLOGY ORDERABLES Edited Performing Organization Address City/[facility]/ZIP Co de Phone Number INTERFACE SYSTEM Refer to clinic/hospital department * (ABNORMAL) COMPREHENSIVE METABOLIC PANEL (06/17/2006 3:21 PM CDT) GLUCOSE 132(H) 60 - 110 mg/dL INTERFACE SYSTEM CREATININE 0.27 0.26 - 0.42 mg/dL INTERFACE SYSTEM CALCIUM 8.6(L) 8.8 - 10.8 mg/dL INTERFACE SYSTEM ALKALINE PHOSPHATASE 148 100 - 269 U/L INTERFACE SYSTEM AST 34(H) 12 - 32 U/L INTERFACE SYSTEM ALT 14 0 - 31 U/L INTERFACE SYSTEM TOTAL PROTEIN 7.0 6.3 - 8.6 g/dL INTERFACE SYSTEM ALBUMIN 4.1 3.8 - 5.4 g/dL INTERFACE SYSTEM BILIRUBIN TOTAL 0.6 0.2 - 1.0 mg/dL INTERFACE SYSTEM BUN 8 6 - 20 mg/dL INTERFACE SYSTEM SODIUM 140 135 - 145 mmol/L INTERFACE SYSTEM POTASSIUM 3.3 3.3 - 4.6 mmol/L INTERFACE SYSTEM CHLORIDE 104 96 - 108 mmol/L INTERFACE SYSTEM CO2 20(L) 22 - 30 mmol/L INTERFACE SYSTEM GFR, N/A:MDRD equation validated for pts. >18 yrs. >=60 mL/min/1 .7 sq meter INTERFACE SYSTEM GFR N/A:MDRD equation validated for pts. >18 yrs. >=60 mL/min/1 .7 sq meter INTERFACE SYSTEM Comment: Estimated GFR rate interpretative information for both Americans and non- Americans is available on the [facility] Intranet at: [email or web address] Select: Lab Policies and Procedures Select: Reference Ranges - GFR 06/17/2006 3:21 PM CDT Castro Mcrae MD CHEMISTRY ORDERABLES Edited INTERFACE SYSTEM Refer to clinic/hospital department documented in this encounter Visit Diagnoses Diagnosis Pneumonia, organism unspecified(486)- Primary Pneumonia, organism unspecified documented in this encounter Care Teams Guest Relations Agent Relationship Specialty Start Date End Date Thomas Grant MD NO ADDRESS ON FILE PCP - General 06/17/06 01/13/15 documented as of this encounter
--- OUTSIDE RECORDS SUMMARY | 2024-12-15 12:42 | XMS_ITS | Encounter Summary ---
Author Organization [facility] Address [address] [place] [address] Care Team Providers Care Director Of Respiratory Therapy Name Role Phone Thomas Grant MD Primary Care Provider Nancy mejia Encounter Details Date Type Department Care Team (Latest Contact Info) Description 12/11/2006 Outpatient Historical [facility] Pediatrics - [facility] [address] [address] [facility] [address] [place] [address] Thomas Grant MD NO ADDRESS ON FILE Urinary Tract Infection, Site not Specified (Primary Dx) Social History Tobacco Use Types Packs/Day Years Used Date Smoking Tobacco: Never Assessed Comments Unknown Sex and Gender Information Value Date Recorded Sex Assigned at Not on file Legal Sex Female 2:47 AM FACILITY PLANNER Gender Identity Not on file Sexual Orientation Not on file documented as of this encounter Plan of Treatment Upcoming Encounters Date Type Department Care Team (Late st Contact Info) Description 06/05/2025 10:50 AM FACILITY PLANNER Office Visit [facility] RN STAFFING [address] [address] Tere Maddox MD [address] [place] [address] [facility] [address] [place] [address] documented as of this encounter Visit Diagnoses Diagnosis Urinary tract infection, site not specified- Primary documented in this encounter Care Teams Director Of Respiratory Therapy Relationship Specialty Start Date End Date Thomas Grant MD NO ADDRESS ON FILE PCP - General 06/17/06 01/13/15 documented as of this encounter
--- OUTSIDE RECORDS SUMMARY | 2024-12-15 12:42 | XMS_ITS | Encounter Summary ---
Author Organization [facility] Address [address] [place] [address] Care Team Providers Care Spent Grain Dryer Name Role Phone Thomas Grant MD Primary Care Provider Unava ilable Encounter Details Date Type Department Care Team (Late st Contact Info) Description 06/18/2006 Outpatient Historical [facility] Pediatrics - [facility] [address] [address] [facility] [address] [place] [address] Thomas Grant MD NO ADDRESS ON FILE Social History Tobacco Use Types Packs/Day Years Used Date Smoking Tobacco: Never Assessed Comments Unknown Sex and Gender Information Value Date Recorded Sex Assigned at Not on file Legal Sex Female 2:47 AM TOWN PLANNER Gender Identity Not on file Sexual Orientation Not on file documented as of this encounter Plan of Treatment Upcoming Encounters Date Type Department Care Team (Late st Contact Info) Description 06/05/2025 10:50 AM TOWN PLANNER Office Visit [facility] FACULTY RESEARCH ASSISTANT [address] [place] [address] Tere Maddox MD [address] [place] [address] [facility] [address] [place] [address] documented as of this encounter Visit Diagnoses Not on filedocumented in this encounter Care Teams Spent Grain Dryer Relationship Specialty Start Date End Date Thomas Grant MD NO ADDRESS ON FILE PCP - General 06/17/06 01/13/15 documented as of this encounter
--- OUTSIDE RECORDS SUMMARY | 2024-12-15 12:42 | XMS_ITS | Encounter Summary ---
Author Organization [facility] Address [address] [place] [address] Care Team Providers Care Pattern Storage Clerk Name Role Phone Thomas Grant MD Primary Care Provider Unasparkle ilable Encounter Details Date Type Department Care Team (Latest Contact Info) Description 09/04/2003 Outpatient Historical [facility] PATIENT IN A BED Castro Mcrae MD [place] [address] [id number] JOINT PAIN-UP/ARM (Primary Dx) Social History Tobacco Use Types Packs/Day Years Used Date Smoking Tobacco: Never Assessed Comments Unknown Sex and Gender Information Value Date Recorded Sex Assigned at Not on file Legal Sex Female 2:47 AM HAMMER SMITH Gender Identity Not on file Sexual Orientation Not on file documented as of this encounter Plan of Treatment Upcoming Encounters Date Type Department Care Team (Late st Contact Info) Description 06/05/2025 10:50 AM HAMMER SMITH Office Visit [facility] MARINE ELECTRICIAN APPRENTICE [address] [place] [address] Tere Maddox MD [address] [place] [address] Office [facility] [address] [place] [address] documented as of this encounter Visit Diagnoses Diagnosis Pain in joint, upper arm- Primary documented in this encounter Care Teams Pattern Storage Clerk Relationship Specialty Start Date End Date Thomas Grant MD NO ADDRESS ON FILE PCP - General 06/17/06 01/13/15 documented as of this encounter
--- OUTSIDE RECORDS SUMMARY | 2024-12-15 12:42 | XMS_ITS | Encounter Summary ---
Author Organization [facility] Address [address] [place] [address] Care Team Providers Care Human Relations Professor Name Role Phone Thomas Grant MD Primary Care Provider Unava ilable Encounter Details Date Type Department Care Team (Late Contact Info) Description 09/04/2003 Outpatient Historical [facility] Department of Peds at [address] [phone] Castro Mcrae MD NO ADDRESS ON FILE Social History Tobacco Use Types Packs/Day Years Used Date Smoking Tobacco: Never Assessed Comments Unknown Sex and Gender Information Value Date Recorded Sex Assigned at Not on file Legal Sex Female 2:47 AM CONTINUOUS IMPROVEMENT LEAD Gender Identity Not on file Sexual Orientation Not on file documented as of this encounter Plan of Treatment Upcoming Encounters Date Type Department Care Team (Late Contact Info) Description 06/05/2025 10:50 AM CONTINUOUS IMPROVEMENT LEAD Office Visit [facility] ANALYTICAL LAB TECHNICIAN [address] [address] Tere Maddox MD [address] [place] [address] [facility] [address] [place] [address] documented as of this encounter Visit Diagnoses Not on filedocumented in this encounter Care Teams Human Relations Professor Relationship Specialty Start Date End Date Thomas Grant MD NO ADDRESS ON FILE PCP - General 06/17/06 01/13/15 documented as of this encounter
--- OUTSIDE RECORDS SUMMARY | 2024-12-15 12:42 | XMS_ITS | Encounter Summary ---
Author Organization [facility] Address [address] [place] [address] Care Team Providers Care Plating Stripper Name Role Phone Thomas Grant MD Primary Care Provider Unava ilable Encounter Details Date Type Department Care Team (Late st Contact Info) Description 12/11/2006 Outpatient Historical [facility] Pediatrics - [facility] [address] [address] [facility] [address] [place] [address] Thomas Grant MD NO ADDRESS ON FILE Social History Tobacco Use Types Packs/Day Years Used Date Smoking Tobacco: Never Assessed Comments Unknown Sex and Gender Information Value Date Recorded Sex Assigned at Not on file Legal Sex Female 2:47 AM SALES MARKETING DIRECTOR Gender Identity Not on file Sexual Orientation Not on file documented as of this encounter Plan of Treatment Upcoming Encounters Date Type Department Care Team (Late st Contact Info) Description 06/05/2025 10:50 AM SALES MARKETING DIRECTOR Office [facility] MEDIA RELATIONS INTERN [address] [place] [address] Tere Maddox MD [address] [place] [address] [facility] [address] [place] [address] documented as of this encounter Visit Diagnoses Not on filedocumented in this encounter Care Teams Plating Stripper Relationship Specialty Start Date End Date Thomas Grant MD NO ADDRESS ON FILE PCP - General 06/17/06 01/13/15 documented as of this encounter
--- OUTSIDE RECORDS SUMMARY | 2024-12-15 12:42 | XMS_ITS | Encounter Summary ---
Author Organization [facility] Address [address] [place] [address] Care Team Providers Care Farm Tractor Operator Name Role Phone Thomas Grant MD Primary Care Provider Unava ilable Encounter Details Date Type Department Care Team (Late st Contact Info) Description 09/14/2006 Emergency [facility] Castro Mcrae MD NO ADDRESS ON FILE Er, Authorized P NO ADDRESS ON FILE Unspecified Pyelonephritis (Primary Dx) Social History Tobacco Use Types Packs/Day Years Used Date Smoking Tobacco: Never Assessed Comments Unknown Sex and Gender Information Value Date Recorded Sex Assigned at Not on file Legal Sex Female 2:47 AM NATUROPATHIC ONCOLOGY PROVIDER Gender Identity Not on file Sexual Orientation Not on file documented as of this encounter Plan of Treatment Upcoming Encounters Date Type Department Care Team (Late st Contact Info) Description 06/05/2025 10:50 AM NATUROPATHIC ONCOLOGY PROVIDER Office Visit [facility] IT INFRASTRUCTURE ENGINEER [address] [address] Tere Maddox MD [address] [place] [address] [address] documented as of this encounter Visit Diagnoses Diagnosis Pyelonephritis, unspecified- Primary documented in this encounter Care Teams Farm Tractor Operator Relationship Specialty Start Date End Date Thomas Grant MD NO ADDRESS ON FILE PCP - General 06/17/06 01/13/15 documented as of this encounter
--- OUTSIDE RECORDS SUMMARY | 2024-12-15 12:42 | XMS_ITS | Clinical Summary ---
Author Organization [facility] Administrative Offices Address [address] [place] [address] Care Team Providers Care Tie Inspector Name Role Phone Unavailable Primary Care Provider Unavailabl e Allergies No known active allergies Medications CHILDREN'S TYLENOL PO Active albuterol (PROVENTIL,GET BETTY) 2.5 mg /3 mL (0.083 %) Solution for Nebulization Take 3 mL by inhalation every 4 hours as needed for Shortness of Breath or Other (See Comment) (cough or wheezing). 180 mL 0 5 Active albuterol sulfate (VENTOLIN HFA) 90 mcg/Actuation inhaler Take 2 Puffs by inhalation every 4 hours as needed for Wheezing, Shortness of Breath or Other (See Comment) (cough). 17 Gram 1 5 Active Additional Information Patient not taking.Reported on 08/12/2024 montelukast (SINGULAIR) 10 mg tablet Take 10 mg by mouth daily. Active inhalational spacing device (MICROCHAMBER) Spacer Use with albuterol. 1 Device 8 Active Additional Information Patient not taking.Reported on 08/12/2024 albuterol HFA 90 mcg inhaler Take 2 Puffs by inhalation every 6 hours as needed for Shortness of Breath. 8.5 Gram 8 Active prochlorperazine maleate (COMPAZINE) 10 mg tablet Take 1 Tablet (10 mg) by mouth every 8 hours as needed for Nausea/Emesis. 20 Tablet None 5 Active Additional Information Patient not taking.Reported on 08/12/2024 amitriptyline (ELAVIL) 25 mg tablet take one tablet by mouth daily at bedtime 5 Active busPIRone (BUSPAR) 10 mg tablet TAKE ONE TABLET BY MOUTH TWICE DAILY. MAY TAKE 1 additional TABLET NEEDED FOR ANXIETY 5 Active traZODone (DESYREL) 50 mg tablet take one tablet by mouth daily at bedtime 5 Active Active Problems Problem Noted Date Diagnosed Date Otitis media of both ears 03/11/2013 Bronchitis 03/11/2013 Extrinsic asthma, unspecified 06/26/2006 Resolved Problems Problem Noted Date Diagnosed Date Resolved Date Fracture, tibia 11/28/2008 05/17/2010 Overview (02/02/2009): Right - Dr. Ocampo Nonorganic enuresis 09/15/2008 02/15/20 10 Sore throat 08/10/2008 02/14/2010 Pneumonia 07/17/2008 02/14/2010 Acute Suppurative Otitis Med ia without Spontaneous 05/20/2008 02/14/2010 Overview (05/20/2008): L-Augmentin UTI 04/10/2008 02/14/2010 Acute Suppurative Otitis Med ia without Spontaneous 10/16/2007 02/14/2010 Overview (10/16/2007): Bilat-Augmentin Otitis externa 10/04/2007 02/14/2010 Otitis media, suppurative 09/09/2007 Pharyngitis, acute 09/09/2007 0 Overview (05/04/2010): Updating IMO/ICD9 Code and Description Bronchitis 08/30/2007 02/14/2010 Acute suppurative otitis med ia without spontaneous rupture of eardrum 04/08/2007 0 Overview (07/07/2007): Right - amoxicillin right - amoxicillin ( 9-25-07) Croup 01/01/2007 02/14/2010 Urinary tract infection, site not specified 12/11/2006 02/14/2010 Pneumonia, organism unspecified(486) 06/17/2006 02/14/2010 Overview (07/07/2007): Hospitalized at [facility] Encounters Date Type Department Care Team Description 11/25/2024 External Device Data STL ABSTRACTION Provider, Abstract 11/12/2024 External Device Data STL ABSTRACTION Provider, Abstract 10/22/2024 External Device Data STL ABSTRACTION Provider, Abstract 10/22/2024 External Device Data STL ABSTRACTION Provider, Abstract 10/14/2024 External Device Data STL ABSTRACTION Provider, Abstract 09/23/2024 External Device Data STL ABSTRACTION Provider, Abstract from Last 3 Months Immunizations Immunization Administration Dates Next Due (ACTHIB/HIBERIX)(2 MOS-5 YRS /6 WKS-4 YRS) HAEMOPHILUS INFLUENZAE TYPE B VACCINE (HIB), PRP-T CONJUGATE, 4 DOSE, 0.5 ML IM 12/29/2003,2002,2002 (GARDASIL 9)(9-45 YRS) HUMAN PAPILLOMAVIRUS VACCINE, TYPES 6, 11, 16, 18, 31, 33, 45, 52, 58, NONAVALENT (9VHPV), 2 OR 3 DOSE, IM 01/27/2015 (HAVRIX/VAQTA)(12 MO-18 YRS) HEPATITIS A VACCINE 0.5 ML PED/ADOL 2 DOSE, IM 12/01/2005,10/31/2004 (INFANRIX)(6 WKS-6 YRS) DIPT HERIA, TETANUS TOXOIDS, AND ACCELLULAR PERTUSSIS VACCINE (DTAP), 0.5 ML IM 07/25/2007,12/29/2003,01/02/2003,10/31,2002 (IPOL)(6 WKS AND UP) POLIOVI JAMMIE VACCINE, INACTIVATED (IPV), 3 DOSE, SUBCUT OR IM 07/25/2007,01/02/2003,2002,08/12 (M-M-R II/PRIORIX)(12 MO UP) MEASLES, MUMPS AND RUBELLA VIRUS VACCINE, 0.5 ML IM/SUBCUT 07/25/2007,06/11/2003 (RECOMBIVAX HB/ENGERIX-B)(0- 19 YRS) HEPATITIS B VACCINE 5 MCG/0.5 ML OR 10 MCG/0.5 ML PED OR ADOL 3 DOSE (PF), IM 2002,2002,2002 (VARIVAX)(12 MOS UP)VARICELL A VIRUS VACCINE (PF) 0.5 ML, SUB CUT 07/25/2007,06/11/2003 HPV Vaccine 3 Dose IM VFC 12/20/2013 Hepatitis B Vaccine Ped Adol IM 3 Dose VFC 02/15/2010 INFLUENZA VACCINE QUADRIVALE NT 3 YR UP PF IM 01/27/2015 Influenza Vaccine Split 3+ Y rs PF IM VFC 03/13/2011,02/15/2010,02/13/2008 Influenza Vaccine Split 6-35 Mo IM 03/13/2003 Meningococcal A Conjugate Va ccine IM VFC 12/20/2013 Pneumococcal 7-valent conjug ate vaccine IM 12/29/2003,01/02/2003,2002,08/12 Tdap Vaccine > 7 Yo IM VFC 12/20/2013 Family History Medical History Relation Name Comments Other Mother AVM Relation Name Status Comments Mother Alive Social History Tobacco Use Types Packs/Day Years Used Date Smoking Tobacco: Never Smokeless Tobacco: Never Alcohol Use Standard Drinks/Week Comments Yes 0 (1 standard drink = 0.6 oz pur e alcohol) socially Feeling Safe Answer Date Recorded Are you in a relationship wi th someone who hurts you emotionally and/or physically? No 07/16/2024 Comments No Sex and Gender Information Value Date Recorded Sex Assigned at Not on file Legal Sex Female 2:[address] Gender Identity Not on file Sexual Orientation Not on file Occupation Industry Job Start Date Job End Date Not on file Not on file Not on file Not on file Last Filed Vital Signs Vital Sign Reading Time Taken Comments Blood Pressure 112/72 08/12/2024 3:02 PM CDT Pulse 96 07/16/2024 11:00 PM CDT Temperature 36.9 C (98.5 F) 07/16/2024 11:00 PM CDT Respiratory Rate 18 07/16/2024 11:00 PM CDT Oxygen Saturation 97% 07/16/2024 11:00 PM CDT Inhaled Oxygen Concentration - - Weight 52.6 kg (116 lb) 08/12/2024 3:02 PM CDT Height 165.1 cm (5' 5) 08/12/2024 3:02 PM CDT Body Mass Index 19.3 08/12/2024 3:02 PM CDT Plan of Treatment Upcoming Encounters Date Type Department Care Team (Late st Contact Info) Description 06/05/2025 10:[address] MANAGER Office Visit [facility] PLANT MAINTENANCE MANAGER [facility] [address] Counts Include [address] [facility] [address] [place] [address] [place] [address] [place] [address] Health Maintenance Due Date Last Done Comments CHLAMYDIA SCREENING (ANNUAL) 11-24 YEARS 2013 DTAP/TDAP/TD VACCINES (7 - T d or Tdap) 12/21/2023 12/20/2013, 07/25/2007, 12/29/2003, Additional history exists INFLUENZA VACCINE (#1) 2024 5, 03/13/2011, 02/15/2010, Additional history exists CERVICAL CANCER SCREENING 06/03/2027 PAP SMEAR 06/03/2027 06/03/2024 HPV/Cotest (21-29) 06/03/2029 06/03/2024 HPV/Cotest (30-65) 2032 06/03/2024 HEPATITIS B VACCINES Completed 02/15/2010, 2002, 2002, Additional history exists HPV VACCINES Completed 01/27/2015, 12/20/2013 Procedures Procedure Name Priority Date/Time Associated Diagnosis Comments CERV/VAG CYTO SCREEN PAP RLFX HPV Routine 06/03/2024 2:[address] MANAGER Well woman exam with routine gynecological exam from Last 3 Months or Most Recently Relevant to Health Maintenance Results * CERV/VAG CYTO SCREEN PAP RLFX HPV (06/03/2024 2:[address] MANAGER) CLINICAL INFORMATION Kat Flower Comment:Routine exam LAST MENSTRUAL PERIOD Kat Flower Comment:NONE GIVEN PREV PAP: Kat Flower Comment:NONE GIVEN PREV BX: Kat Flower Comment:NONE GIVEN SOURCE Kat Flower Comment:Endocervix ADEQUACY: Kat Flower Comment: Satisfactory for evaluation. Endocervical/transformation zone component present. Age and/or menstrual status not provided PAP INTERP Kat Flower Comment: Cytology Results: Negative for intraepithelial lesion or malignancy. COMMENT (PAP TEST) Q uest Lalo Flower Comment: This Pap test has been evaluated with computer assisted technology. OTORHINOLARYNGOLOGIST: Dandy Flower Comment: JAF CT(ASCP) CT Screening Location: [place] [address] Administration [place] [address] NOTE Que [address] Lalo Flower Comment: EXPLANATORY NOTE: The Pap is a screening test for cervical cancer. It is not a diagnostic test and is subject to false negative and false positive results. It is most reliable when a satisfactory sample, regularly obtained, is submitted with relevant clinical findings and history, and when the Pap result is evaluated along with historic and current clinical information. Test Performed at: [place] [address] Administration [place] [id number] Pamela Wan Genital SWAB OF ENDOCERVIX / Unknown 06/03/2024 2:[address] MANAGER 06/04/2024 3:[address] MANAGER Tere Maddox MD PATHOLOGY/CYTOLOGY ORDERABLES F inal Result [facility] [phone] [place] [address] Administration [place] [id number] from Last 3 Months or Most Recently Relevant to Health Maintenance Insurance [facility] [employer] [facility] [id number] Member Subscriber Plan / Payer (Ef fective 2024-Present) Name:Luz Nance Relation to Subscriber:Self Name:Luz Nance Payer ID:[id number] (NAIC) Group ID:[id number] Type:HMO Address: [place] [id number] Advance Directives For more information, please contact: [phone] * Full Code (Latest Code Status on File) Date Activated Date Inactivated Comments 05/16/2024 3:16 PM 05/16/2024 6:34 PM
--- OUTSIDE RECORDS SUMMARY | 2024-12-15 12:42 | XMS_ITS | Encounter Summary ---
Author Organization [facility] Address [address] [place] [address] Care Team Providers Care Township Clerk Name Role Phone Thomas Grant MD Primary Care Provider Unava ilable Encounter Details Date Type Department Care Team (Late Contact Info) Description 06/15/2006 Outpatient Historical [facility] Pediatric[facility] - [facility] [address] [address] [facility] [address] [place] [address] Thomas Grant MD NO ADDRESS ON FILE Social History Tobacco Use Types Packs/Day Years Used Date Smoking Tobacco: Never Assessed Comments Unknown Sex and Gender Information Value Date Recorded Sex Assigned at Not on file Legal Sex Female 2:47 AM PRODUCTION LINE MECHANIC Gender Identity Not on file Sexual Orientation Not on file documented as of this encounter Last Filed Vital Signs Vital Sign Reading Time Taken Comments Blood Pressure - - Pulse 120 06/15/2006 1:45 PM PRODUCTION LINE MECHANIC Temperature 37 C (98.6 F) 06/15/2006 1:45 PM PRODUCTION LINE MECHANIC Respiratory Rate 24 06/15/2006 1:45 PM PRODUCTION LINE MECHANIC Oxygen Saturation - - Inhaled Oxygen Concentration - - Weight 18.8 kg (41 lb 8 oz) 06/15/2006 1:[address] Height - - Body Mass Index - - documented in this encounter Plan of Treatment Upcoming Encounters Date Type Department Care Team (Late Contact Info) Description 06/05/2025 10:50 AM PRODUCTION LINE MECHANIC Office Visit [facility] FINDER TWISTING DEPARTMENT [place] [id number] [place] [address] [place] [address] [place] [address] documented as of this encounter Visit Diagnoses Not on filedocumented in this encounter Care Teams Township Clerk Relationship Specialty Start Date End Date Thomas Grant MD NO ADDRESS ON FILE PCP - General 06/17/06 01/13/15 documented as of this encounter
--- OUTSIDE RECORDS SUMMARY | 2024-12-15 12:42 | XMS_ITS | Encounter Summary ---
Author Organization [facility] Address [address] [place] [address] Care Team Providers Care Campus Administrative Assistant Name Role Phone Thomas Grant MD Primary Care Provider Nancy ilable Encounter Details Date Type Department Care Team (Latest Contact Info) Description 04/24/2004 Inpatient Historical [facility] [place] [address] [place] [address] VIRAL PNEUMONIA NOS (Primary Dx) Social History Tobacco Use Types Packs/Day Years Used Date Smoking Tobacco: Never Assessed Comments Unknown Sex and Gender Information Value Date Recorded Sex Assigned at Not on file Legal Sex Female 2:47 AM SHIP OFFICER Gender Identity Not on file Sexual Orientation Not on file documented as of this encounter Plan of Treatment Upcoming Encounters Date Type Department Care Team (Late st Contact Info) Description 06/05/2025 10:50 AM SHIP OFFICER Office Visit [facility] HOPPER ATTENDANT [address] [address] Tere Maddox MD [address] [place] [address] [address] documented as of this encounter Procedures Procedure Name Priority Date/Time Associated Diagnosis Comments CBC WITH DIFFERENTIAL Routine 04/26/2004 9:55 AM SHIP OFFICER CBC WITH DIFFERENTIAL Routine 04/26/2004 9:55 AM SHIP OFFICER BASIC METABOLIC PANEL Routine 04/26/2004 9:55 AM SHIP OFFICER CBC WITH DIFFERENTIAL Routine 04/24/2004 5:57 PM SHIP OFFICER CBC WITH DIFFERENTIAL Routine 04/24/2004 5:57 PM SHIP OFFICER CBC WITH DIFFERENTIAL Routine 04/24/2004 5:57 PM SHIP OFFICER BASIC METABOLIC PANEL Routine 04/24/2004 5:57 PM SHIP OFFICER documented in this encounter Results * (ABNORMAL) CBC WITH DIFFERENTIAL (04/26/2004 9:55 AM SHIP OFFICER) NEUTROPHIL ABSOLUTE 0.96 K/uL INTERFACE SYSTEM LYMPHOCYTE ABSOLUTE 3.17 K/uL INTERFACE SYSTEM MONOCYTE ABSOLUTE 0.67 K/uL IN TERFACE SYSTEM EOSINOPHIL ABSOLUTE 0.00 K/uL INTERFACE SYSTEM BASOPHILS ABSOLUTE 0.00 K/uL INTERFACE SYSTEM NEUTROPHILS, SEG 17 16 - 60 % INT ERFACE SYSTEM BANDS 3 0 - 4 % INTERFACE SYSTEM LYMPHOCYTES 62 20 - 70 % INTERFAC E SYSTEM MONOCYTES 14(H) 0 - 7 % INTERFACE SYSTEM EOSINOPHILS 0 0 - 8 % INTERFAC E SYSTEM BASOPHILS 0 0 - 1 % INTERFACE SYSTEM ATYPICAL LYMPHOCYTE 4 0 - 5 % INTERFACE SYSTEM PLATELET EST. Normal Normal INTERF VIJAYA SYSTEM ANISOCYTOSIS Slight INTERFA CE SYSTEM 04/26/2004 9:55 AM SHIP OFFICER us Karl Shi MD HEMATOLOGY ORDERABLES Final Res ult INTERFACE SYSTEM Refer to clinic/hospital department * (ABNORMAL) CBC WITH DIFFERENTIAL (04/26/2004 9:55 AM SHIP OFFICER) WBC 4.8(L) 6.0 - 17.5 K/uL INTERFACE SYSTEM RBC 4.11 3.70 - 5.30 M/uL INTERFACE SYSTEM HEMOGLOBIN 11.0 10.5 - 13.5 g/dL INTERFACE SYSTEM HEMATOCRIT 34.2 33.0 - 39.0 % INTERFACE SYSTEM MCV 83.2 70.0 - 86.0 fL INTERFACE SYSTEM MCH 26.8 24.0 - 30.0 pg INTERFACE SYSTEM MCHC 32.2 31.0 - 37.0 % INTERFACE SYSTEM RDW 14.3 11.5 - 14.5 % INTERFACE SYSTEM RDW-STDEV 44.2 37.1 - 48.7 fL INTERFACE SYSTEM PLATELETS 193 140 - 350 K/uL INTERFACE SYSTEM MPV 9.6 9.3 - 12.4 fL INTERFACE SYSTEM 04/26/2004 9:55 AM SHIP OFFICER Karl Shi MD HEMATOLOGY ORDERABLES Final Res ult Performing Organization Address [facility] Phone Number INTERFACE SYSTEM Refer to clinic/hospital department * (ABNORMAL) BASIC METABOLIC PANEL (04/26/2004 9:55 AM SHIP OFFICER) GLUCOSE 97 60 - 110 mg/dL INTERFACE SYSTEM CREATININE 0.3 0.2 - 0.7 mg/dL INTERFACE SYSTEM BUN 3(L) 6 - 20 mg/dL INTERFACE SYSTEM SODIUM 140 135 - 145 mmol/L INTERFACE SYSTEM CHLORIDE 109(H) 96 - 108 mmol/L INTERFACE SYSTEM CO2 23 22 - 30 mmol/L INTERFACE SYSTEM CALCIUM 9.5 9.0 - 11.0 mg/dL INTERFACE SYSTEM POTASSIUM 4.0 3.3 - 4.6 mmol/L INTERFACE SYSTEM 04/26/2004 9:55 AM SHIP OFFICER Karl Shi MD CHEMISTRY ORDERABLES Final Resu lt Performing Organization Address [facility] Phone Number INTERFACE SYSTEM Refer to clinic/hospital department * (ABNORMAL) CBC WITH DIFFERENTIAL (04/24/2004 5:57 PM SHIP OFFICER) NEUTROPHIL ABSOLUTE 1.67 K/uL INTERFACE SYSTEM LYMPHOCYTE ABSOLUTE 1.22 K/uL INTERFACE SYSTEM MONOCYTE ABSOLUTE 0.51 K/uL INTERFACE SYSTEM EOSINOPHIL ABSOLUTE 0.00 K/uL INTERFACE SYSTEM BASOPHILS ABSOLUTE 0.00 K/uL INTERFACE SYSTEM NEUTROPHILS, SEG 48 16 - 60 % INTERFACE SYSTEM BANDS 1 0 - 4 % INTERFACE SYSTEM LYMPHOCYTES 32 20 - 70 % INTERFAC E SYSTEM MONOCYTES 15(H) 0 - 7 % INTERFACE SYSTEM EOSINOPHILS 0 0 - 8 % INTERFAC E SYSTEM BASOPHILS 0 0 - 1 % INTERFACE SYSTEM ATYPICAL LYMPHOCYTE 4 0 - 5 % INTERFACE SYSTEM PLATELET EST. Normal Normal INTERF VIJAYA SYSTEM RBC MORPHOLOGY Normal Normal INTER FACE SYSTEM REVIEWED ON SMEAR Plt OK by Smear Rev. INTERFACE SYSTEM 04/24/2004 5:57 PM SHIP OFFICER May Pérez MD HEMATOLOGY ORDERABLES Final Result Performing Organization Address [facility] Phone Number INTERFACE SYSTEM Refer to clinic/hospital department * CBC WITH DIFFERENTIAL (04/24/2004 5:57 PM SHIP OFFICER) NRBC 0 <=0 /100 WBC INTERFACE SYSTEM 04/24/2004 5:57 PM SHIP OFFICER May Pérez MD HEMATOLOGY ORDERABLES Final Result Performing Organization Address [facility] Phone Number INTERFACE SYSTEM Refer to clinic/hospital department * (ABNORMAL) CBC WITH DIFFERENTIAL (04/24/2004 5:57 PM SHIP OFFICER) WBC 3.4(L) 6.0 - 17.5 K/uL INTERFACE SYSTEM RBC 4.09 3.70 - 5.30 M/uL INTERFACE SYSTEM HEMOGLOBIN 11.1 10.5 - 13.5 g/dL INTERFACE SYSTEM HEMATOCRIT 34.0 33.0 - 39.0 % INTERFACE SYSTEM MCV 83.1 70.0 - 86.0 fL INTERFACE SYSTEM MCH 27.1 24.0 - 30.0 pg INTERFACE SYSTEM MCHC 32.6 31.0 - 37.0 % INTERFACE SYSTEM RDW 14.2 11.5 - 14.5 % INTERFACE SYSTEM RDW-STDEV 43.5 37.1 - 48.7 fL INTERFACE SYSTEM PLATELETS 227 140 - 350 K/uL INTERFACE SYSTEM MPV 10.2 9.3 - 12.4 fL INTERFACE SYSTEM 04/24/2004 5:57 PM SHIP OFFICER May Pérez MD HEMATOLOGY ORDERABLES Final Result Performing Organization Address [facility] Phone Number INTERFACE SYSTEM Refer to clinic/hospital department * (ABNORMAL) BASIC METABOLIC PANEL (04/24/2004 5:57 PM SHIP OFFICER) GLUCOSE 99 60 - 110 mg/dL INTERFACE SYSTEM Comment: Grossly hemolyzed. Results questionable due to hemolysis. CREATININE 0.2 0.2 - 0.7 mg/dL INTERFACE SYSTEM CALCIUM 8.3(L) 9.0 - 11.0 mg/dL INTERFACE SYSTEM BUN 7 6 - 20 mg/dL INTERFACE SYSTEM SODIUM 138 135 - 145 mmol/L INTERFACE SYSTEM POTASSIUM 5.7(H) 3.3 - 4.6 mmol/L INTERFACE SYSTEM Comment: Grossly hemolyzed. Results questionable due to hemolysis. CHLORIDE 105 96 - 108 mmol/L INTERFACE SYSTEM CO2 22 22 - 30 mmol/L INTERFACE SYSTEM Comment: Grossly hemolyzed. Results questionable due to hemolysis. 04/24/2004 5:57 PM SHIP OFFICER us May Pérez MD CHEMISTRY ORDERABLES Final R esult INTERFACE SYSTEM Refer to clinic/hospital department documented in this encounter Visit Diagnoses Diagnosis Viral pneumonia, unspecified- Primary documented in this encounter Care Teams Campus Administrative Assistant Relationship Specialty Start Date End Date Thomas Grant MD NO ADDRESS ON FILE PCP - General 06/17/06 01/13/15 documented as of this encounter
--- OUTSIDE RECORDS SUMMARY | 2024-12-15 12:42 | XMS_ITS | Encounter Summary ---
Author Organization [facility] Address [address] [place] [address] Care Team Providers Care Processing Supervisor Name Role Phone Thomas Grant MD Primary Care Provider Unava ilable Encounter Details Date Type Department Care Team (Late Contact Info) Description 02/20/2004 Outpatient Historical [facility] Pediatrics - Medical [place] [address] [facility] [address] [address] Roni Ruiz MD [address] [facility] [place] [address] Social History Tobacco Use Types Packs/Day Years Used Date Smoking Tobacco: Never Assessed Comments Unknown Sex and Gender Information Value Date Recorded Sex Assigned at Not on file Legal Sex Female 2:47 AM DIRECTOR DIGITAL COMMUNICATIONS Gender Identity Not on file Sexual Orientation Not on file documented as of this encounter Plan of Treatment Upcoming Encounters Date Type Department Care Team (Late st Contact Info) Description 06/05/2025 10:50 AM DIRECTOR DIGITAL COMMUNICATIONS Office Visit [facility] DENTAL OFFICE RECEPTIONIST [address] [address] Tere Maddox MD [address] [place] [address] [facility] [address] [place] [address] documented as of this encounter Visit Diagnoses Not on filedocumented in this encounter Care Teams Processing Supervisor Relationship Specialty Start Date End Date Thomas Grant MD NO ADDRESS ON FILE PCP - General 06/17/06 01/13/15 documented as of this encounter
--- OUTSIDE RECORDS SUMMARY | 2024-12-15 12:42 | XMS_ITS | Encounter Summary ---
Author Organization [facility] Address [address] [place] [address] Care Team Providers Care Child Nutrition Assistant Name Role Phone Thomas Grant MD Primary Care Provider Unasparkle ilable Encounter Details Date Type Department Care Team (Late Contact Info) Description 01/01/2007 Outpatient Historical [facility] Pediatrics - [facility] [address] [address] [facility] [address] [place] [address] Thomas Grant MD NO ADDRESS ON FILE Social History Tobacco Use Types Packs/Day Years Used Date Smoking Tobacco: Never Assessed Comments Unknown Sex and Gender Information Value Date Recorded Sex Assigned at Not on file Legal Sex Female 2:47 AM CHOCOLATIER Gender Identity Not on file Sexual Orientation Not on file documented as of this encounter Last Filed Vital Signs Vital Sign Reading Time Taken Comments Blood Pressure - - Pulse 124 01/01/2007 10:00 AM CDT Temperature 36.7 C (98 F) 01/01/2007 10:00 AM CDT Respiratory Rate 18 01/01/2007 10:00 AM CDT Oxygen Saturation - - Inhaled Oxygen Concentration - - Weight 19.5 kg (43 lb) 01/01/2007 10:00 AM CDT Height - - Body Mass Index - - documented in this encounter Plan of Treatment Upcoming Encounters Date Type Department Care Team (Late Contact Info) Description 06/05/2025 10:50 AM CHOCOLATIER Office Visit [facility] CONCRETE PIPE MAKER [place] [id number] [facility] [address] [place] [address] [place] [address] [facility] [address] [place] [address] documented as of this encounter Visit Diagnoses Not on filedocumented in this encounter Care Teams Child Nutrition Assistant Relationship Specialty Start Date End Date Thomas Grant MD NO ADDRESS ON FILE PCP - General 06/17/06 01/13/15 documented as of this encounter
--- OUTSIDE RECORDS SUMMARY | 2024-12-15 12:42 | XMS_ITS | Encounter Summary ---
Author Organization [facility] Address [address] [place] [address] Care Team Providers Care Kennel Attendant Name Role Phone Thomas Grant MD Primary Care Provider Unava ilable Encounter Details Date Type Department Care Team (Late Contact Info) Description 12/16/2003 Outpatient Historical [facility] Pediatrics - Medical [place] [address] [facility] [address] [address] Roni Ruiz MD [address] [facility] [place] [address] Social History Tobacco Use Types Packs/Day Years Used Date Smoking Tobacco: Never Assessed Comments Unknown Sex and Gender Information Value Date Recorded Sex Assigned at Not on file Legal Sex Female 2:47 AM ADMINISTRATION INTERN Gender Identity Not on file Sexual Orientation Not on file documented as of this encounter Plan of Treatment Upcoming Encounters Date Type Department Care Team (Late st Contact Info) Description 06/05/2025 10:50 AM ADMINISTRATION INTERN Office Visit [facility] WARDROBE MANAGER [address] [address] Tere Maddox MD [address] [place] [address] [facility] [address] [place] [address] documented as of this encounter Visit Diagnoses Not on filedocumented in this encounter Care Teams Kennel Attendant Relationship Specialty Start Date End Date Thomas Grant MD NO ADDRESS ON FILE PCP - General 06/17/06 01/13/15 documented as of this encounter
--- OUTSIDE RECORDS SUMMARY | 2024-12-15 12:42 | XMS_ITS | Encounter Summary ---
Author Organization [facility] Address [address] [place] [address] Care Team Providers Care Mural Painter Name Role Phone Thomas Grant MD Primary Care Provider Unava ilable Encounter Details Date Type Department Care Team (Late st Contact Info) Description 12/11/2006 Outpatient Historical [facility] Pediatrics - [facility] [address] [address] [facility] [address] [place] [address] Thomas Grant MD NO ADDRESS ON FILE Social History Tobacco Use Types Packs/Day Years Used Date Smoking Tobacco: Never Assessed Comments Unknown Sex and Gender Information Value Date Recorded Sex Assigned at Not on file Legal Sex Female 2:47 AM CIGARETTE INSPECTOR Gender Identity Not on file Sexual Orientation Not on file documented as of this encounter Plan of Treatment Upcoming Encounters Date Type Department Care Team (Late st Contact Info) Description 06/05/2025 10:50 AM CIGARETTE INSPECTOR Office Visit [facility] TROPHY ASSEMBLER [address] [place] [address] Tere Maddox MD [address] [place] [address] [facility] [address] [place] [address] documented as of this encounter Visit Diagnoses Not on filedocumented in this encounter Care Teams Mural Painter Relationship Specialty Start Date End Date Thomas Grant MD NO ADDRESS ON FILE PCP - General 06/17/06 01/13/15 documented as of this encounter
--- OUTSIDE RECORDS SUMMARY | 2024-12-15 12:43 | XMS_ITS | Encounter Summary ---
Author Organization [facility] Address [address] [place] [address] Care Team Providers Care Quality Intern Name Role Phone Thomas Grant MD Primary Care Provider Unava ilable Encounter Details Date Type Department Care Team (Late st Contact Info) Description 01/24/2003 Outpatient Historical [facility] Pediatrics - Medical [place] [address] [facility] [address] [address] Ayaka Santo MD NO ADDRESS ON FILE Social History Tobacco Use Types Packs/Day Years Used Date Smoking Tobacco: Never Assessed Comments Unknown Sex and Gender Information Value Date Recorded Sex Assigned at Not on file Legal Sex Female 2:47 AM DIE CAST DIE MAKER Gender Identity Not on file Sexual Orientation Not on file documented as of this encounter Plan of Treatment Upcoming Encounters Date Type Department Care Team (Late st Contact Info) Description 06/05/2025 10:50 AM DIE CAST DIE MAKER Office Visit [facility] ELEMENTARY SECRETARY [address] [address] Tere Maddox MD [address] [place] [address] [facility] 200 [place] [address] documented as of this encounter Visit Diagnoses Not on filedocumented in this encounter Care Teams Quality Intern Relationship Specialty Start Date End Date Thomas Grant MD NO ADDRESS ON FILE PCP - General 06/17/06 01/13/15 documented as of this encounter
--- OUTSIDE RECORDS SUMMARY | 2024-12-15 12:43 | XMS_ITS | Encounter Summary ---
Author Organization [facility] Address [address] [place] [address] Care Team Providers Care Outside Medical Sales Representative Name Role Phone Thomas Grant MD Primary Care Provider Nancy mejia Encounter Details Date Type Department Care Team (Late st Contact Info) Description 05/02/2014 Nurse Triage Report STL ABSTRACTION Claribel Avelar, RN Social History Tobacco Use Types Packs/Day Years Used Date Smoking Tobacco: Never Assessed Comments Unknown Sex and Gender Information Value Date Recorded Sex Assigned at Not on file Legal Sex Female 2:47 AM EDI CONSULTANT Gender Identity Not on file Sexual Orientation Not on file Occupation Industry Job Start Date Job End Date Not on file Not on file Not on file Not on file documented as of this encounter Progress Notes * Claribel Avelar, EMILIA - 05/02/2014 1:27 PM CST Call Type: Triage Call Presenting Problem: Mom Samantha Nance She needs a new medication. Report feedback to Dr. Grant. ASSESSMENT TRIAGE NOTE Triage Note: Display Department Manager Madan Avelar added this note on May 02 2014 1:27PM: Saw yesterday and mom wants to add antibioticto her medications, will call office on sunday. TRIAGE/OUTCOME Guideline Title: Medication Question Call (Pediatric) Recommended Disposition: Call Provider within 24 Hours Original Inclination: Call Provider/See in 24 Override Disposition: Intended Action: Call or See Provider within 24 hrs Physician Contacted: No Caller requesting a nonurgent new prescription (Exception: non-essential refill) ? YES Physician Instructions: Care Advice: CARE ADVICE given per Medication Question Call - No Triage (Pediatric) guideline. CALL BACK IF: * You have other questions or concerns * Your child becomes worse CALL PCP WITHIN 24 HOURS: You need to discuss this with your child's doctor within the next 24 hours. * IF OFFICE WILL BE OPEN: Call the office when it opens tomorrow morning. * IF OFFICE WILL BE CLOSED: I'll page him now. (EXCEPTION: from 9 pm to 9 am. Since this isn't urgent, we'll hold the page until morning.) CONSULTANT documented in this encounter Plan of Treatment Upcoming Encounters Date Type Department Care Team (Late st Contact Info) Description 06/05/2025 10:50 AM EDI CONSULTANT Office Visit [facility] MARKETING COMMUNICATION MANAGER [address] [place] [address] Tere Maddox MD [address] [place] [address] [facility] 200 [place] [address] documented as of this encounter Visit Diagnoses Not on filedocumented in this encounter Care Teams Outside Medical Sales Representative Relationship Specialty Start Date End Date Thomas Grant MD NO ADDRESS ON FILE PCP - General 06/17/06 01/13/15 documented as of this encounter
--- OUTSIDE RECORDS SUMMARY | 2024-12-15 12:43 | XMS_ITS | Encounter Summary ---
Author Organization [facility] Address [address] [place] [address] Care Team Providers Care Aircraft Fuselage Framer Name Role Phone Thomas Grant MD Primary Care Provider Unava ilable Encounter Details Date Type Department Care Team (Late st Contact Info) Description 03/13/2003 Outpatient Historical [facility] Pediatrics - Medical [place] [address] [facility] [address] [address] Ayaka Santo MD NO ADDRESS ON FILE Social History Tobacco Use Types Packs/Day Years Used Date Smoking Tobacco: Never Assessed Comments Unknown Sex and Gender Information Value Date Recorded Sex Assigned at Not on file Legal Sex Female 2:47 AM MANAGEMENT RECRUITER Gender Identity Not on file Sexual Orientation Not on file documented as of this encounter Plan of Treatment Upcoming Encounters Date Type Department Care Team (Late st Contact Info) Description 06/05/2025 10:50 AM MANAGEMENT RECRUITER Office Visit [facility] CASING CREW [address] [address] Tere Maddox MD [address] [place] [address] [address] documented as of this encounter Procedures Procedure Name Priority Date/Time Associated Diagnosis Comments CHG INFLUENZA VACCINE SPLIT 6-35 [place] IM VFC 03/13/2003 12:00 AM MANAGEMENT RECRUITER documented in this encounter Visit Diagnoses Not on filedocumented in this encounter Care Teams Aircraft Fuselage Framer Relationship Specialty Start Date End Date Thomas Grant MD NO ADDRESS ON FILE PCP - General 06/17/06 01/13/15 documented as of this encounter
--- OUTSIDE RECORDS SUMMARY | 2024-12-15 12:43 | XMS_ITS | Encounter Summary ---
Author Organization [facility] Address [address] [place] [address] Care Team Providers Care Spool Fixer Name Role Phone Thomas Grant MD Primary Care Provider Unava ilable Encounter Details Date Type Department Care Team (Latest Contact Info) Description 07/17/2008 Outpatient Historical [facility] Thomas Grant MD NO ADDRESS ON FILE Abdominal Pain, Unspecified Site Social History Tobacco Use Types Packs/Day Years Used Date Smoking Tobacco: Never Assessed Comments Unknown Sex and Gender Information Value Date Recorded Sex Assigned at Not on file Legal Sex Female 2:47 AM DECK BUILDER Gender Identity Not on file Sexual Orientation Not on file documented as of this encounter Plan of Treatment Upcoming Encounters Date Type Department Care Team (Late st Contact Info) Description 06/05/2025 10:50 AM DECK BUILDER Office Visit [facility] AUTOMATIC PAD MAKING MACHINE OPERATOR [address] [place] [address] Teer Maddox MD [address] [place] [address] [facility] 200 [place] [address] documented as of this encounter Visit Diagnoses Diagnosis Abdominal pain, unspecified site documented in this encounter Care Teams Spool Fixer Relationship Specialty Start Date End Date Thomas Grant MD NO ADDRESS ON FILE PCP - General 06/17/06 01/13/15 documented as of this encounter
--- OUTSIDE RECORDS SUMMARY | 2024-12-15 12:43 | XMS_ITS | Encounter Summary ---
Author Organization [facility] Address [address] [place] [address] Care Team Providers Care Trimmer Meat Name Role Phone Thomas Grant MD Primary Care Provider Unava ilable Encounter Details Date Type Department Care Team (Late st Contact Info) Description 02/16/2003 Outpatient Historical [facility] Pediatrics - Medical [place] [address] [facility] [address] [address] Ayaka Santo MD NO ADDRESS ON FILE Social History Tobacco Use Types Packs/Day Years Used Date Smoking Tobacco: Never Assessed Comments Unknown Sex and Gender Information Value Date Recorded Sex Assigned at Not on file Legal Sex Female 2:47 AM CHANGE CONTROL MANAGER Gender Identity Not on file Sexual Orientation Not on file documented as of this encounter Plan of Treatment Upcoming Encounters Date Type Department Care Team (Late st Contact Info) Description 06/05/2025 10:50 AM CHANGE CONTROL MANAGER Office Visit [facility] COMPUTER PROGRAMMER CHIEF [address] [address] Tere Maddox MD [address] [place] [address] [facility] 200 [place] [address] documented as of this encounter Visit Diagnoses Not on filedocumented in this encounter Care Teams Trimmer Meat Relationship Specialty Start Date End Date Thomas Grant MD NO ADDRESS ON FILE PCP - General 06/17/06 01/13/15 documented as of this encounter
--- OUTSIDE RECORDS SUMMARY | 2024-12-15 12:43 | XMS_ITS | Encounter Summary ---
Author Organization [facility] Address [address] [place] [address] Care Team Providers Care Field Merchandiser Name Role Phone Thomas Grant MD Primary Care Provider Unava ilable Encounter Details Date Type Department Care Team (Late st Contact Info) Description 2002 Outpatient Historical [facility] Pediatrics - Medical [place] [address] [facility] [address] [address] Noble Jacome MD NO ADDRESS ON FILE Social History Tobacco Use Types Packs/Day Years Used Date Smoking Tobacco: Never Assessed Comments Unknown Sex and Gender Information Value Date Recorded Sex Assigned at Not on file Legal Sex Female 2:47 AM NEWSPAPER VENDOR Gender Identity Not on file Sexual Orientation Not on file documented as of this encounter Plan of Treatment Upcoming Encounters Date Type Department Care Team (Late st Contact Info) Description 06/05/2025 10:50 AM NEWSPAPER VENDOR Office Visit [facility] FISH FILLETER [address] [address] Tere Maddox MD [address] [place] [address] [facility] 200 [place] [address] documented as of this encounter Visit Diagnoses Not on filedocumented in this encounter Care Teams Field Merchandiser Relationship Specialty Start Date End Date Thomas Grant MD NO ADDRESS ON FILE PCP - General 06/17/06 01/13/15 documented as of this encounter
--- OUTSIDE RECORDS SUMMARY | 2024-12-15 12:43 | XMS_ITS | Encounter Summary ---
Author Organization [facility] Address [address] [place] [address] Care Team Providers Care Compliance Analyst Name Role Phone Thomas Grant MD Primary Care Provider Unava ilable Encounter Details Date Type Department Care Team (Late Contact Info) Description 06/11/2003 Outpatient Historical [facility] Pediatrics - Medical [place] [address] [facility] [address] [address] Ayaka Santo MD NO ADDRESS ON FILE Social History Tobacco Use Types Packs/Day Years Used Date Smoking Tobacco: Never Assessed Comments Unknown Sex and Gender Information Value Date Recorded Sex Assigned at Not on file Legal Sex Female 2:47 AM RUBBER WASHER Gender Identity Not on file Sexual Orientation Not on file documented as of this encounter Plan of Treatment Upcoming Encounters Date Type Department Care Team (Late st Contact Info) Description 06/05/2025 10:50 AM RUBBER WASHER Office Visit [facility] PATENTED HOGSHEAD ASSEMBLER [address] [address] Tere Maddox MD [address] [place] [address] [facility] 200 [place] [address] documented as of this encounter Procedures Procedure Name Priority Date/Time Associated Diagnosis Comments CHG VARICELLA VACCINE LIVE SQ VFC 06/11/2003 12:00 AM RUBBER WASHER CHG MMR VACCINE SQ VFC 06/11/2003 12:00 AM RUBBER WASHER documented in this encounter Visit Diagnoses Not on filedocumented in this encounter Care Teams Compliance Analyst Relationship Specialty Start Date End Date Thomas Grant MD NO ADDRESS ON FILE PCP - General 06/17/06 01/13/15 documented as of this encounter
--- OUTSIDE RECORDS SUMMARY | 2024-12-15 12:43 | XMS_ITS | Encounter Summary ---
Author Organization [facility] Address [address] [place] [address] Care Team Providers Care Facilities And Grounds Director Name Role Phone Thomas Grant MD Primary Care Provider Unasparkle ilable Encounter Details Date Type Department Care Team (Late Contact Info) Description 2002 Outpatient Historical [facility] Pediatrics - Medical [place] [address] [facility] [address] [facility] [address] [address] Shira Mak MD [id number] [place] [address] Social History Tobacco Use Types Packs/Day Years Used Date Smoking Tobacco: Never Assessed Comments Unknown Sex and Gender Information Value Date Recorded Sex Assigned at Not on file Legal Sex Female 2:47 AM INDUSTRIAL MAINTENANCE MILLWRIGHT Gender Identity Not on file Sexual Orientation Not on file documented as of this encounter Plan of Treatment Upcoming Encounters Date Type Department Care Team (Late Contact Info) Description 06/05/2025 10:50 AM INDUSTRIAL MAINTENANCE MILLWRIGHT Office Visit [facility] PRIMER WATERPROOFING MACHINE OPERATOR [address] [address] Tere Maddox MD [address] [place] [address] Office [facility] 200 [place] [address] documented as of this encounter Visit Diagnoses Not on filedocumented in this encounter Care Teams Facilities And Grounds Director Relationship Specialty Start Date End Date Thomas Grant MD NO ADDRESS ON FILE PCP - General 06/17/06 01/13/15 documented as of this encounter
--- OUTSIDE RECORDS SUMMARY | 2024-12-15 12:43 | XMS_ITS | Encounter Summary ---
Author Organization [facility] Address [address] [place] [address] Care Team Providers Care Carpet Layer Helper Name Role Phone Thomas Grant MD Primary Care Provider Unava ilable Encounter Details Date Type Department Care Team (Late Contact Info) Description 09/15/2008 Outpatient Historical [facility], [address] Thomas Grant MD NO ADDRESS ON FILE Enuresis Social History Tobacco Use Types Packs/Day Years Used Date Smoking Tobacco: Never Assessed Comments Unknown Sex and Gender Information Value Date Recorded Sex Assigned at Not on file Legal Sex Female 2:47 AM OPHTHALMIC TECH Gender Identity Not on file Sexual Orientation Not on file documented as of this encounter Plan of Treatment Upcoming Encounters Date Type Department Care Team (Late st Contact Info) Description 06/05/2025 10:50 AM OPHTHALMIC TECH Office Visit [facility] MANAGER [place] [address] [place] [address] Tere Maddox MD [address] [place] [address] [facility] [address] [place] [address] documented as of this encounter Visit Diagnoses Diagnosis Nonorganic enuresis documented in this encounter Care Teams Carpet Layer Helper Relationship Specialty Start Date End Date Thomas Grant MD NO ADDRESS ON FILE PCP - General 06/17/06 01/13/15 documented as of this encounter
--- OUTSIDE RECORDS SUMMARY | 2024-12-15 12:43 | XMS_ITS | Encounter Summary ---
Author Organization [facility] Address [address] [place] [address] Care Team Providers Care Electrical Accessories Assembler Name Role Phone Thomas Grant MD Primary Care Provider Unava ilable Encounter Details Date Type Department Care Team (Late st Contact Info) Description 08/19/2003 Outpatient Historical [facility] Pediatrics - Medical [address] [facility] [address] [address] Ayaka Santo MD NO ADDRESS ON FILE Social History Tobacco Use Types Packs/Day Years Used Date Smoking Tobacco: Never Assessed Comments Unknown Sex and Gender Information Value Date Recorded Sex Assigned at Not on file Legal Sex Female 2:47 AM TELECOMMUNICATIONS FACILITY EXAMINER Gender Identity Not on file Sexual Orientation Not on file documented as of this encounter Plan of Treatment Upcoming Encounters Date Type Department Care Team (Late st Contact Info) Description 06/05/2025 10:50 AM TELECOMMUNICATIONS FACILITY EXAMINER Office Visit [facility]3] LINK TRAINER TEACHER [address] [place] [address] Tere Maddox MD [address] [place] [address] [facility] 200 [place] [address] documented as of this encounter Visit Diagnoses Not on filedocumented in this encounter Care Teams Electrical Accessories Assembler Relationship Specialty Start Date End Date Thomas Grant MD NO ADDRESS ON FILE PCP - General 06/17/06 01/13/15 documented as of this encounter
--- OUTSIDE RECORDS SUMMARY | 2024-12-15 12:43 | XMS_ITS | Encounter Summary ---
Author Organization [facility] Address [address] [place] [address] Care Team Providers Care Supervisor Reclamation Name Role Phone Mckenna Byers MD Primary Care Provider Unava ilable Encounter Details Date Type Department Care Team (Late st Contact Info) Description 09/28/2008 Emergency [facility] [place], Authorized P NO ADDRESS ON FILE Samantha Vazquez MD [address] [place] [address] Social History Tobacco Use Types Packs/Day Years Used Date Smoking Tobacco: Never Assessed Comments Unknown Sex and Gender Information Value Date Recorded Sex Assigned at Not on file Legal Sex Female 2:47 AM BRIEFCASE SEWER Gender Identity Not on file Sexual Orientation Not on file documented as of this encounter Plan of Treatment Upcoming Encounters Date Type Department Care Team (Late st Contact Info) Description 06/05/2025 10:50 AM BRIEFCASE SEWER Office Visit [facility] NUMERICAL CONTROL DRILL PRESS OPERATOR [address] [address] Tere Maddox MD [address] [place] [address] [address] documented as of this encounter Procedures Procedure Name Priority Date/Time Associated Diagnosis Comments XR CHEST PA AND LATERAL 2 VW Routine 09/28/2008 9:48 PM CDT documented in this encounter Results * XR CHEST PA AND LATERAL (09/28/2008 9:48 PM CDT) Anatomical Region Laterality Modality Chest Other 09/28/2008 9:48 PM CDT Narrative 09/29/2008 11:53 AM CDT [facility] [address] [place], [place] [address] Admit Date: 09/28/2008 GHAZAL JEROME Sex: F Admit Prov: ER, AUTHORIZED P Date: 2000 Primary Care Prov: MCKENNA BYERS CMRN: [id number] Room: ER-A SSN: IMAGING SERVICES Ordering Prov: N/A Accession Number: [id number] Interpretation CHEST, 2 PROJECTIONS, 09/28/2008 Clinical History: Cough and vomiting. The lungs are clear and the heart and mediastinum appear normal. There is no pleural effusion or pneumothorax. There is a little tapering of the subglottic tracheal air column which can sometimes be seen with subglottic edema in patients with cough. The examination is otherwise unremarkable. The central lung markings are not as heavy as on the previous examination of 07/17/2008. IMPRESSION: Negative chest. Question of some mild subglottic edema associated with a history of coughing. . Dictated by: CHELSY MEJIAS 09/29/2008 07:47 Electronically signed by: CHELSY MEJIAS 09/29/2008 11:52 Transcribed: 09/29/2008 07:51 SMM Procedure Note Provider, Historical - 09/29/2008 [place] [id number] [place], [place] [address] Admit Date: 09/28/2008 GHAZAL JEROME Sex: F Admit Prov: ER, AUTHORIZED P Date: 2000 Primary Care Prov: MCKENNA BYERS CMRN: [id number] [facility] Ordering Prov: N/A Interpretation CHEST, 2 PROJECTIONS, 09/28/2008 Clinical History: Cough and vomiting. The lungs are clear and the heart and mediastinum appear normal.There is no pleural effusion or pneumothorax. There is a little tapering ofthe subglottic tracheal air column which can sometimes be seen withsubglottic edema in patients with cough. The examination is otherwiseunremarkable. The central lung markings are not as heavy as on the previousexamination of 07/17/2008. IMPRESSION: Negative chest. Question of some mild subglottic edema associated with a history of coughing. . Dictated by: CHELSY MEJIAS 09/29/2008 07:47 Electronically signed by: CHELSY MEJIAS 09/29/2008 11:52 Transcribed: 09/29/2008 07:51 SMM us Samantha Vazquez MD DIAGNOSTIC IMAGING ORDERABLES Final Result documented in this encounter Visit Diagnoses Not on filedocumented in this encounter Care Teams Supervisor Reclamation Relationship Specialty Start Date End Date Mckenna Byers MD NO ADDRESS ON FILE PCP - General 06/17/06 01/13/15 documented as of this encounter
--- OUTSIDE RECORDS SUMMARY | 2024-12-15 12:43 | XMS_ITS | Encounter Summary ---
Author Organization [facility] Address [address] [place] [address] Care Team Providers Care Statue Carver Name Role Phone Thomas Grant MD Primary Care Provider Nancy ilable Encounter Details Date Type Department Care Team (Late Contact Info) Description 06/26/2006 Outpatient Historical [facility] - [facility] [address] [address] [facility] [address] [place] [address] Thomsa Grant MD NO ADDRESS ON FILE Social History Tobacco Use Types Packs/Day Years Used Date Smoking Tobacco: Never Assessed Comments Unknown Sex and Gender Information Value Date Recorded Sex Assigned at Not on file Legal Sex Female 2:47 AM MEDICAL CSR Gender Identity Not on file Sexual Orientation Not on file documented as of this encounter Last Filed Vital Signs Vital Sign Reading Time Taken Comments Blood Pressure - - Pulse 96 06/26/2006 1:45 PM CDT Temperature 36.6 C (97.8 F) 06/26/2006 1:45 PM CDT Respiratory Rate 20 06/26/2006 1:45 PM CDT Oxygen Saturation - - Inhaled Oxygen Concentration - - Weight 19.1 kg (42 lb) 06/26/2006 1:45 PM CDT Height - - Body Mass Index - - documented in this encounter Plan of Treatment Upcoming Encounters Date Type Department Care Team (Late Contact Info) Description 06/05/2025 10:50 AM MEDICAL CSR Office Visit [facility]] DUST CONTROL ENGINEER [place] [id number] [facility] [address] [place] [address] [place] [address] [place] [address] documented as of this encounter Visit Diagnoses Not on filedocumented in this encounter Care Teams Statue Carver Relationship Specialty Start Date End Date Thomas Grant MD NO ADDRESS ON FILE PCP - General 06/17/06 01/13/15 documented as of this encounter
--- OUTSIDE RECORDS SUMMARY | 2024-12-15 12:43 | XMS_ITS | Encounter Summary ---
Author Organization [facility] Address [address] [place] [address] Care Team Providers Care Bakery Deliverer Name Role Phone Thomas Grant MD Primary Care Provider Unava ilable Encounter Details Date Type Department Care Team (Late st Contact Info) Description 07/27/2003 Outpatient Historical [facility] Pediatrics - Medical [place] [address] [address] Ayaka Santo MD NO ADDRESS ON FILE Social History Tobacco Use Types Packs/Day Years Used Date Smoking Tobacco: Never Assessed Comments Unknown Sex and Gender Information Value Date Recorded Sex Assigned at Not on file Legal Sex Female 2:47 AM AGILE COACH Gender Identity Not on file Sexual Orientation Not on file documented as of this encounter Plan of Treatment Upcoming Encounters Date Type Department Care Team (Late st Contact Info) Description 06/05/2025 10:50 AM AGILE COACH Office Visit [facility] PBX INSPECTOR [address] [place] [address] Tere Maddox MD [address] [place] [address] [facility] 200 [place] [address] documented as of this encounter Visit Diagnoses Not on filedocumented in this encounter Care Teams Bakery Deliverer Relationship Specialty Start Date End Date Thomas Grant MD NO ADDRESS ON FILE PCP - General 06/17/06 01/13/15 documented as of this encounter
--- OUTSIDE RECORDS SUMMARY | 2024-12-15 12:43 | XMS_ITS | Encounter Summary ---
Author Organization [facility] Address [address] [place] [address] Care Team Providers Care Bosom Presser Name Role Phone Thomas Grant MD Primary Care Provider Unava ilable Encounter Details Date Type Department Care Team (Latest Contact Info) Description 08/10/2008 Outpatient Historical [facility] Thomas Grant MD NO ADDRESS ON FILE Acute Pharyngitis Social History Tobacco Use Types Packs/Day Years Used Date Smoking Tobacco: Never Assessed Comments Unknown Sex and Gender Information Value Date Recorded Sex Assigned at Not on file Legal Sex Female 2:47 AM SENIOR SALES OPERATIONS MANAGER Gender Identity Not on file Sexual Orientation Not on file documented as of this encounter Plan of Treatment Upcoming Encounters Date Type Department Care Team (Late st Contact Info) Description 06/05/2025 10:50 AM SENIOR SALES OPERATIONS MANAGER Office Visit [facility] OFFAL TRIMMER [address] [place] [address] Tere Maddox MD [address] [place] [address] [facility] 200 [place] [address] documented as of this encounter Visit Diagnoses Diagnosis Acute pharyngitis documented in this encounter Care Teams Bosom Presser Relationship Specialty Start Date End Date Thomas Garnt MD NO ADDRESS ON FILE PCP - General 06/17/06 01/13/15 documented as of this encounter
--- OUTSIDE RECORDS SUMMARY | 2024-12-15 12:43 | XMS_ITS | Encounter Summary ---
Author Organization [facility] Address [address] [place] [address] Care Team Providers Care Boring Machine Operator Production Name Role Phone Thomas Grant MD Primary Care Provider Unava ilable Encounter Details Date Type Department Care Team (Late st Contact Info) Description 2002 Outpatient Historical [facility] - [facility] [place] [address] [facility] [address] [address] Ayaka Santo MD NO ADDRESS ON FILE Social History Tobacco Use Types Packs/Day Years Used Date Smoking Tobacco: Never Assessed Comments Unknown Sex and Gender Information Value Date Recorded Sex Assigned at Not on file Legal Sex Female 2:47 AM APPLIED MATHEMATICIAN Gender Identity Not on file Sexual Orientation Not on file documented as of this encounter Plan of Treatment Upcoming Encounters Date Type Department Care Team (Late st Contact Info) Description 06/05/2025 10:50 AM APPLIED MATHEMATICIAN Office Visit [facility] BALLET PROFESSOR [address] [address] Tere Maddox MD [address] [place] [address] [facility] 200 [place] [address] documented as of this encounter Visit Diagnoses Not on filedocumented in this encounter Care Teams Boring Machine Operator Production Relationship Specialty Start Date End Date Thomas Grant MD NO ADDRESS ON FILE PCP - General 06/17/06 01/13/15 documented as of this encounter
--- OUTSIDE RECORDS SUMMARY | 2024-12-15 12:43 | XMS_ITS | Encounter Summary ---
Author Organization [facility] Address [address] [place] [address] Care Team Providers Care Business Analysis Analyst Name Role Phone Thomas Grant MD Primary Care Provider Unava ilable Encounter Details Date Type Department Care Team (Late Contact Info) Description 2002 Outpatient Historical [facility] Pediatrics - Medical [place] [address] [facility] [address] [address] Ayaka Santo MD NO ADDRESS ON FILE Social History Tobacco Use Types Packs/Day Years Used Date Smoking Tobacco: Never Assessed Comments Unknown Sex and Gender Information Value Date Recorded Sex Assigned at Not on file Legal Sex Female 2:47 AM BOARD STACKER Gender Identity Not on file Sexual Orientation Not on file documented as of this encounter Plan of Treatment Upcoming Encounters Date Type Department Care Team (Late Contact Info) Description 06/05/2025 10:50 AM BOARD STACKER Office Visit [facility] ASSISTANT PRINTER FLOOR COVERING [address] [address] Tere Maddox MD [address] [place] [address] [address] documented as of this encounter Procedures Procedure Name Priority Date/Time Associated Diagnosis Comments CHG HEP B HIB COMBINED VACCINE IM VFC 2002 12:00 AM CDT CHG PNEUMOCOCCAL VACCINE <5 YO IM VFC 2002 12:00 AM CDT documented in this encounter Visit Diagnoses Not on filedocumented in this encounter Care Teams Business Analysis Analyst Relationship Specialty Start Date End Date Thomas Grant MD NO ADDRESS ON FILE PCP - General 06/17/06 01/13/15 documented as of this encounter
--- OUTSIDE RECORDS SUMMARY | 2024-12-15 12:43 | XMS_ITS | Encounter Summary ---
Author Organization [facility] Address [address] [place] [address] Care Team Providers Care Computer Network Specialist Name Role Phone Thomas Grant MD Primary Care Provider Unasparkle ilable Encounter Details Date Type Department Care Team (Late Contact Info) Description 04/14/2003 Outpatient Historical [facility] Pediatric[facility] - Medical [place] [facility] [address] [facility] [address] [address] Shira Mak MD [address] [place] [id number] [place] [address] Social History Tobacco Use Types Packs/Day Years Used Date Smoking Tobacco: Never Assessed Comments Unknown Sex and Gender Information Value Date Recorded Sex Assigned at Not on file Legal Sex Female 2:47 AM EXPELLER OPERATOR Gender Identity Not on file Sexual Orientation Not on file documented as of this encounter Plan of Treatment Upcoming Encounters Date Type Department Care Team (Late st Contact Info) Description 06/05/2025 10:50 AM EXPELLER OPERATOR Office Visit [facility] [employer] MAINFRAME SYSTEMS PROGRAMMER [address] [address] Tere Maddox MD [address] [place] [address] Office [facility] 200 [place] [address] documented as of this encounter Visit Diagnoses Not on filedocumented in this encounter Care Teams Computer Network Specialist Relationship Specialty Start Date End Date Thomas Grant MD NO ADDRESS ON FILE PCP - General 06/17/06 01/13/15 documented as of this encounter
--- OUTSIDE RECORDS SUMMARY | 2024-12-15 12:43 | XMS_ITS | Encounter Summary ---
Author Organization [facility] Address [address] [place] [address] Care Team Providers Care Refuge Worker Name Role Phone Thomas Grant MD Primary Care Provider Unava ilable Encounter Details Date Type Department Care Team (Late st Contact Info) Description 01/02/2003 Outpatient Historical [facility] Pediatrics - Medical [place] [address] [facility] [address] [address] Ayaka Santo MD NO ADDRESS ON FILE Social History Tobacco Use Types Packs/Day Years Used Date Smoking Tobacco: Never Assessed Comments Unknown Sex and Gender Information Value Date Recorded Sex Assigned at Not on file Legal Sex Female 2:47 AM RESOURCE ROOM SPECIAL EDUCATION TEACHER Gender Identity Not on file Sexual Orientation Not on file documented as of this encounter Plan of Treatment Upcoming Encounters Date Type Department Care Team (Late st Contact Info) Description 06/05/2025 10:50 AM RESOURCE ROOM SPECIAL EDUCATION TEACHER Office Visit [facility] SOLAR INSTALLATION SUPERVISOR [address] [address] eTre Maddox MD [address] [place] [address] [facility] 200 [place] [address] documented as of this encounter Visit Diagnoses Not on filedocumented in this encounter Care Teams Refuge Worker Relationship Specialty Start Date End Date Thomas Grant MD NO ADDRESS ON FILE PCP - General 06/17/06 01/13/15 documented as of this encounter
--- OUTSIDE RECORDS SUMMARY | 2024-12-15 12:43 | XMS_ITS | Encounter Summary ---
Author Organization [facility] Address [address] [place] [address] Care Team Providers Care Overhead Distribution Engineer Name Role Phone Thomas Grant MD Primary Care Provider Unava ilable Encounter Details Date Type Department Care Team (Late st Contact Info) Description 04/06/2003 Outpatient Historical [facility] Pediatrics - Medical [place] [address] [facility] [address] [address] Ayaka Santo MD NO ADDRESS ON FILE Social History Tobacco Use Types Packs/Day Years Used Date Smoking Tobacco: Never Assessed Comments Unknown Sex and Gender Information Value Date Recorded Sex Assigned at Not on file Legal Sex Female 2:47 AM INSTALLATION SUPERINTENDENT Gender Identity Not on file Sexual Orientation Not on file documented as of this encounter Plan of Treatment Upcoming Encounters Date Type Department Care Team (Late st Contact Info) Description 06/05/2025 10:50 AM INSTALLATION SUPERINTENDENT Office Visit [facility] BALLOON ARTIST [address] [address] Tere Maddox MD [address] [place] [address] [facility] 200 [place] [address] documented as of this encounter Visit Diagnoses Not on filedocumented in this encounter Care Teams Overhead Distribution Engineer Relationship Specialty Start Date End Date Thomas Grant MD NO ADDRESS ON FILE PCP - General 06/17/06 01/13/15 documented as of this encounter
--- OUTSIDE RECORDS SUMMARY | 2024-12-15 12:43 | XMS_ITS | Encounter Summary ---
Author Organization [facility] Address [address] [place] [address] Care Team Providers Care Special Programs Director Name Role Phone Thomas Grant MD Primary Care Provider Unava ilable Encounter Details Date Type Department Care Team (Late st Contact Info) Description 07/02/2003 Outpatient Historical [facility] Pediatrics - Medical [place] [address] [facility] [address] [address] Ayaka Santo MD NO ADDRESS ON FILE Social History Tobacco Use Types Packs/Day Years Used Date Smoking Tobacco: Never Assessed Comments Unknown Sex and Gender Information Value Date Recorded Sex Assigned at Not on file Legal Sex Female 2:47 AM HAND FORMER HELPER Gender Identity Not on file Sexual Orientation Not on file documented as of this encounter Plan of Treatment Upcoming Encounters Date Type Department Care Team (Late st Contact Info) Description 06/05/2025 10:50 AM HAND FORMER HELPER Office Visit [facility] LIME KILN WORKER [address] [address] Tere Maddox MD [address] [place] [address] [facility] 200 [place] [address] documented as of this encounter Visit Diagnoses Not on filedocumented in this encounter Care Teams Special Programs Director Relationship Specialty Start Date End Date Thomas Grant MD NO ADDRESS ON FILE PCP - General 06/17/06 01/13/15 documented as of this encounter
--- OUTSIDE RECORDS SUMMARY | 2024-12-15 12:43 | XMS_ITS | Encounter Summary ---
Author Organization [facility] Address [address] [place] [address] Care Team Providers Care Ornamental Brick Installer Name Role Phone Thomas Grant MD Primary Care Provider Unava ilable Encounter Details Date Type Department Care Team (Late st Contact Info) Description 04/10/2008 Outpatient Historical [facility] Thomas Grant MD NO ADDRESS ON FILE Dysuria Social History Tobacco Use Types Packs/Day Years Used Date Smoking Tobacco: Never Assessed Comments Unknown Sex and Gender Information Value Date Recorded Sex Assigned at Not on file Legal Sex Female 2:47 AM CORRECTIONAL CASEWORK SPECIALIST Gender Identity Not on file Sexual Orientation Not on file documented as of this encounter Plan of Treatment Upcoming Encounters Date Type Department Care Team (Late st Contact Info) Description 06/05/2025 10:50 AM CORRECTIONAL CASEWORK SPECIALIST Office Visit [facility] BLOCK MAKING MACHINE OPERATOR [address] [place] [address] Tere Maddox MD [address] [place] [address] [facility] 200 [place] [address] documented as of this encounter Visit Diagnoses Diagnosis Dysuria documented in this encounter Care Teams Ornamental Brick Installer Relationship Specialty Start Date End Date Thomas Grant MD NO ADDRESS ON FILE PCP - General 06/17/06 01/13/15 documented as of this encounter
--- OUTSIDE RECORDS SUMMARY | 2024-12-15 12:43 | XMS_ITS | Encounter Summary ---
Author Organization [facility] Address [address] [place] [address] Care Team Providers Care Room Server Name Role Phone Thomas Grant MD Primary Care Provider Unava ilable Encounter Details Date Type Department Care Team (Late st Contact Info) Description 03/02/2003 Outpatient Historical [facility] Pediatrics - Medical [place] [address] [facility] [address] [address] Ayaka Santo MD NO ADDRESS ON FILE Social History Tobacco Use Types Packs/Day Years Used Date Smoking Tobacco: Never Assessed Comments Unknown Sex and Gender Information Value Date Recorded Sex Assigned at Not on file Legal Sex Female 2:47 AM MLT Gender Identity Not on file Sexual Orientation Not on file documented as of this encounter Plan of Treatment Upcoming Encounters Date Type Department Care Team (Late st Contact Info) Description 06/05/2025 10:50 AM MLT Office Visit [facility] SUPERVISOR BINDERY [address] [address] Tere Maddox MD [address] [place] [address] [facility] 200 [place] [address] documented as of this encounter Visit Diagnoses Not on filedocumented in this encounter Care Teams Room Server Relationship Specialty Start Date End Date Thomas Grant MD NO ADDRESS ON FILE PCP - General 06/17/06 01/13/15 documented as of this encounter
--- OUTSIDE RECORDS SUMMARY | 2024-12-15 12:43 | XMS_ITS | Encounter Summary ---
Author Organization [facility] Address [address] [place] [address] Care Team Providers Care Repair Welder Name Role Phone Thomas Grant MD Primary Care Provider Unava ilable Encounter Details Date Type Department Care Team (Late st Contact Info) Description 2002 Outpatient Historical [facility] Pediatrics - Medical [place] [address] [facility] [address] [address] Ayaka Santo MD NO ADDRESS ON FILE Social History Tobacco Use Types Packs/Day Years Used Date Smoking Tobacco: Never Assessed Comments Unknown Sex and Gender Information Value Date Recorded Sex Assigned at Not on file Legal Sex Female 2:47 AM NAVAL AIRCREWMAN AVIONICS Gender Identity Not on file Sexual Orientation Not on file documented as of this encounter Plan of Treatment Upcoming Encounters Date Type Department Care Team (Late st Contact Info) Description 06/05/2025 10:50 AM NAVAL AIRCREWMAN AVIONICS Office Visit [facility] POCKET SETTER LOCKSTITCH [address] [address] Tere Maddox MD [address] [place] [address] [facility] 200 [place] [address] documented as of this encounter Visit Diagnoses Not on filedocumented in this encounter Care Teams Repair Welder Relationship Specialty Start Date End Date Thomas Grant MD NO ADDRESS ON FILE PCP - General 06/17/06 01/13/15 documented as of this encounter
--- OUTSIDE RECORDS SUMMARY | 2024-12-15 12:43 | XMS_ITS | Encounter Summary ---
Author Organization [facility] Address [address] [place] [address] Care Team Providers Care Mobile Service Rv Technician Name Role Phone Thomas Grant MD Primary Care Provider Unava ilable Encounter Details Date Type Department Care Team (Late Contact Info) Description 01/02/2003 Outpatient Historical [facility] Pediatrics - Medical [place] [address] [facility] [address] [address] Ayaka Santo MD NO ADDRESS ON FILE Social History Tobacco Use Types Packs/Day Years Used Date Smoking Tobacco: Never Assessed Comments Unknown Sex and Gender Information Value Date Recorded Sex Assigned at Not on file Legal Sex Female 2:47 AM MEDICAL MANAGEMENT SPECIALIST Gender Identity Not on file Sexual Orientation Not on file documented as of this encounter Plan of Treatment Upcoming Encounters Date Type Department Care Team (Late Contact Info) Description 06/05/2025 10:50 AM MEDICAL MANAGEMENT SPECIALIST Office Visit [facility] SIMPLEX OPERATOR [address] [address] Tere Maddox MD [address] [place] [address] [facility] 200 [place] [address] documented as of this encounter Procedures Procedure Name Priority Date/Time Associated Diagnosis Comments CHG DTAP VACCINE <7 YO IM VFC 01/02/2003 12:00 AM CDT documented in this encounter Visit Diagnoses Not on filedocumented in this encounter Care Teams Mobile Service Rv Technician Relationship Specialty Start Date End Date Thomas Grant MD NO ADDRESS ON FILE PCP - General 06/17/06 01/13/15 documented as of this encounter
--- OUTSIDE RECORDS SUMMARY | 2024-12-15 12:43 | XMS_ITS | Encounter Summary ---
Author Organization [facility] Address [address] [facility] [address] [place]: [place] [address] Care Team Providers Care Stage Electrician Helper Name Role Phone Thomas Grant MD Primary Care Provider Nancy ilchuck Encounter Details Date Type Department Care Team (Late Contact Info) Description 2002 Inpatient Historical Noble Jacome MD NO ADDRESS ON FILE Shira Mak MD [address] [facility] [place] [id number] SINGL BORN IN HOSP-NO C/DELIVERY (Primary Dx) Social History Tobacco Use Types Packs/Day Years Used Date Smoking Tobacco: Never Assessed Comments Unknown Sex and Gender Information Value Date Recorded Sex Assigned at Not on file Legal Sex Female 2:47 AM SHRUB GROWER Gender Identity Not on file Sexual Orientation Not on file documented as of this encounter Plan of Treatment Upcoming Encounters Date Type Department Care Team (Late Contact Info) Description 06/05/2025 10:50 AM SHRUB GROWER Office Visit [facility] [address]RE[address] CLEANING EQUIPMENT OPERATOR [address] [place] [address] [place] [address] [address] [facility] 200 [place] [address] documented as of this encounter Visit Diagnoses Diagnosis Single liveborn, born in hospital, delivered without mention of delivery- Primary documented in this encounter Care Teams Stage Electrician Helper Relationship Specialty Start Date End Date Thomas Grant MD NO ADDRESS ON FILE PCP - General 06/17/06 01/13/15 documented as of this encounter
--- OUTSIDE RECORDS SUMMARY | 2024-12-15 12:43 | XMS_ITS | Encounter Summary ---
Author Organization [facility] Address [address] [place] [address] Care Team Providers Care Package Line Operator Name Role Phone Thomas Grant MD Primary Care Provider Nancy mejia Encounter Details Date Type Department Care Team (Late Contact Info) Description 08/26/2003 Emergency [facility]GENC[facility] Iron Kim MD [address] [place] [address] Er, Authorized P NO ADDRESS ON FILE CONTUSION OF ELBOW (Primary Dx) Social History Tobacco Use Types Packs/Day Years Used Date Smoking Tobacco: Never Assessed Comments Unknown Sex and Gender Information Value Date Recorded Sex Assigned at Not on file Legal Sex Female 2:47 AM HOSPICE MASSAGE THERAPIST Gender Identity Not on file Sexual Orientation Not on file documented as of this encounter Plan of Treatment Upcoming Encounters Date Type Department Care Team (Late Contact Info) Description 06/05/2025 10:50 AM HOSPICE MASSAGE THERAPIST Office Visit [facility] SET UP PERSON [address] [address] Tere Maddox MD [address] [place] [address] [facility] 200 [place] [address] documented as of this encounter Visit Diagnoses Diagnosis Contusion of elbow- Primary documented in this encounter Care Teams Package Line Operator Relationship Specialty Start Date End Date Thomas Grant MD NO ADDRESS ON FILE PCP - General 06/17/06 01/13/15 documented as of this encounter
--- OUTSIDE RECORDS SUMMARY | 2024-12-15 12:43 | XMS_ITS | Encounter Summary ---
Author Organization [facility] Address [address] [place] [address] Care Team Providers Care Associate Software Application Engineer Name Role Phone Thomas Grant MD Primary Care Provider Unava ilable Encounter Details Date Type Department Care Team (Late st Contact Info) Description 2002 Outpatient Historical [facility] Pediatrics - Medical [place] [address] [facility] [address] [address] Ayaka Santo MD NO ADDRESS ON FILE Social History Tobacco Use Types Packs/Day Years Used Date Smoking Tobacco: Never Assessed Comments Unknown Sex and Gender Information Value Date Recorded Sex Assigned at Not on file Legal Sex Female 2:47 AM AUTOMOTIVE PARTS COUNTER ASSISTANT Gender Identity Not on file Sexual Orientation Not on file documented as of this encounter Plan of Treatment Upcoming Encounters Date Type Department Care Team (Late st Contact Info) Description 06/05/2025 10:50 AM AUTOMOTIVE PARTS COUNTER ASSISTANT Office Visit [facility] PUNCHBOARD STUFFER [address] [address] Tere Maddox MD [address] [place] [address] [facility] 200 [place] [address] documented as of this encounter Visit Diagnoses Not on filedocumented in this encounter Care Teams Associate Software Application Engineer Relationship Specialty Start Date End Date Thomas Grant MD NO ADDRESS ON FILE PCP - General 06/17/06 01/13/15 documented as of this encounter
--- OUTSIDE RECORDS SUMMARY | 2024-12-15 12:43 | XMS_ITS | Encounter Summary ---
Author Organization [facility] Address [address] [place] [address] Care Team Providers Care Alfalfa Dehydrator Operator Name Role Phone Thomas Grant MD Primary Care Provider Unava ilable Encounter Details Date Type Department Care Team (Late st Contact Info) Description 01/13/2003 Outpatient Historical [facility] Pediatrics - Medical [place] [address] [facility] [address] [address] Noble Jacome MD NO ADDRESS ON FILE Social History Tobacco Use Types Packs/Day Years Used Date Smoking Tobacco: Never Assessed Comments Unknown Sex and Gender Information Value Date Recorded Sex Assigned at Not on file Legal Sex Female 2:47 AM REHABILITATION COUNSELLOR Gender Identity Not on file Sexual Orientation Not on file documented as of this encounter Plan of Treatment Upcoming Encounters Date Type Department Care Team (Late st Contact Info) Description 06/05/2025 10:50 AM REHABILITATION COUNSELLOR Office Visit [facility] SOAKING PIT OPERATOR [address] [address] Tere Maddox MD [address] [place] [address] [facility] 200 [place] [address] documented as of this encounter Visit Diagnoses Not on filedocumented in this encounter Care Teams Alfalfa Dehydrator Operator Relationship Specialty Start Date End Date Thomas Grant MD NO ADDRESS ON FILE PCP - General 06/17/06 01/13/15 documented as of this encounter
--- OUTSIDE RECORDS SUMMARY | 2024-12-15 12:43 | XMS_ITS | Encounter Summary ---
Author Organization [facility] Address [address] [place] [address] Care Team Providers Care Software Engineer Mobile Name Role Phone Thomas Grant MD Primary Care Provider Unava ilable Encounter Details Date Type Department Care Team (Late st Contact Info) Description 01/24/2003 Outpatient Historical [facility] Pediatrics - Medical [place] [address] [facility] [address] [address] Ayaka Santo MD NO ADDRESS ON FILE Social History Tobacco Use Types Packs/Day Years Used Date Smoking Tobacco: Never Assessed Comments Unknown Sex and Gender Information Value Date Recorded Sex Assigned at Not on file Legal Sex Female 2:47 AM ASSISTANT FACILITY MANAGER Gender Identity Not on file Sexual Orientation Not on file documented as of this encounter Plan of Treatment Upcoming Encounters Date Type Department Care Team (Late st Contact Info) Description 06/05/2025 10:50 AM ASSISTANT FACILITY MANAGER Office [facility] PRIVACY SPECIALIST [address] [address] Tere Maddox MD [address] [place] [address] [facility] 200 [place] [address] documented as of this encounter Visit Diagnoses Not on filedocumented in this encounter Care Teams Software Engineer Mobile Relationship Specialty Start Date End Date Thomas Grant MD NO ADDRESS ON FILE PCP - General 06/17/06 01/13/15 documented as of this encounter
--- OUTSIDE RECORDS SUMMARY | 2024-12-15 12:43 | XMS_ITS | Encounter Summary ---
Author Organization [facility] Address [address] [place] [address] Care Team Providers Care Construction Equipment Technician Name Role Phone Thomas Grant MD Primary Care Provider Unava ilable Encounter Details Date Type Department Care Team (Late st Contact Info) Description 2002 Outpatient Historical [facility] Pediatrics - Medical [place] [address] [facility] [address] [address] Ayaka Santo MD NO ADDRESS ON FILE Social History Tobacco Use Types Packs/Day Years Used Date Smoking Tobacco: Never Assessed Comments Unknown Sex and Gender Information Value Date Recorded Sex Assigned at Not on file Legal Sex Female 2:47 AM INFORMATION SYSTEMS SECURITY OFFICER Gender Identity Not on file Sexual Orientation Not on file documented as of this encounter Plan of Treatment Upcoming Encounters Date Type Department Care Team (Late st Contact Info) Description 06/05/2025 10:50 AM INFORMATION SYSTEMS SECURITY OFFICER Office Visit [facility] PIG MACHINE OPERATOR [address] [address] Tere Maddox MD [address] [place] [address] [facility] 200 [place] [address] documented as of this encounter Visit Diagnoses Not on filedocumented in this encounter Care Teams Construction Equipment Technician Relationship Specialty Start Date End Date Thomas Grant MD NO ADDRESS ON FILE PCP - General 06/17/06 01/13/15 documented as of this encounter
--- OUTSIDE RECORDS SUMMARY | 2024-12-15 12:43 | XMS_ITS | Encounter Summary ---
Author Organization [facility] Address [address] [place] [address] Care Team Providers Care Mechanical Shop Laborer Name Role Phone Thomas Grant MD Primary Care Provider Unava ilable Encounter Details Date Type Department Care Team (Late Contact Info) Description 2002 Outpatient Historical [facility] Pediatrics - Medical [place] [address] [facility] [address] [address] Ayaka Santo MD NO ADDRESS ON FILE Social History Tobacco Use Types Packs/Day Years Used Date Smoking Tobacco: Never Assessed Comments Unknown Sex and Gender Information Value Date Recorded Sex Assigned at Not on file Legal Sex Female 2:47 AM REMOTE MEDICAL CODER Gender Identity Not on file Sexual Orientation Not on file documented as of this encounter Plan of Treatment Upcoming Encounters Date Type Department Care Team (Late Contact Info) Description 06/05/2025 10:50 AM REMOTE MEDICAL CODER Office Visit [facility] PER DIEM RN [address] [address] Tere Maddox MD [address] [place] [address] [address] documented as of this encounter Procedures Procedure Name Priority Date/Time Associated Diagnosis Comments CHG HEP B HIB COMBINED VACCINE IM VFC 2002 12:00 AM CDT CHG PNEUMOCOCCAL VACCINE <5 YO IM VFC 2002 12:00 AM CDT documented in this encounter Visit Diagnoses Not on filedocumented in this encounter Care Teams Mechanical Shop Laborer Relationship Specialty Start Date End Date Thomas Grant MD NO ADDRESS ON FILE PCP - General 06/17/06 01/13/15 documented as of this encounter
--- OUTSIDE RECORDS SUMMARY | 2024-12-15 12:43 | XMS_ITS | Encounter Summary ---
Author Organization [facility] Address [address] [place] [address] Care Team Providers Care Speech Therapist Name Role Phone Thomas Grant MD Primary Care Provider Unava ilable Encounter Details Date Type Department Care Team (Late Contact Info) Description 2002 Outpatient Historical [facility] Pediatrics - Medical [place] [address] [facility] [address] [address] Roni Ruiz MD [address] [facility] [place] [address] Social History Tobacco Use Types Packs/Day Years Used Date Smoking Tobacco: Never Assessed Comments Unknown Sex and Gender Information Value Date Recorded Sex Assigned at Not on file Legal Sex Female 2:47 AM RETURNS SUPERVISOR Gender Identity Not on file Sexual Orientation Not on file documented as of this encounter Plan of Treatment Upcoming Encounters Date Type Department Care Team (Late st Contact Info) Description 06/05/2025 10:50 AM RETURNS SUPERVISOR Office Visit [facility] INSTRUCTIONAL DEVELOPER [address] [address] Tere Maddox MD [address] [place] [address] [facility] 200 [place] [address] documented as of this encounter Visit Diagnoses Not on filedocumented in this encounter Care Teams Speech Therapist Relationship Specialty Start Date End Date Thomas Grant MD NO ADDRESS ON FILE PCP - General 06/17/06 01/13/15 documented as of this encounter
--- OUTSIDE RECORDS SUMMARY | 2024-12-15 12:43 | XMS_ITS | Encounter Summary ---
Author Organization [facility] Address [address] [place] [address] Care Team Providers Care Mill Supervisor Name Role Phone Thomas Grant MD Primary Care Provider Unava ilable Encounter Details Date Type Department Care Team (Late Contact Info) Description 01/02/2003 Outpatient Historical [facility] Pediatrics - Medical [place] [address] [facility] [address] [address] Ayaka Santo MD NO ADDRESS ON FILE Social History Tobacco Use Types Packs/Day Years Used Date Smoking Tobacco: Never Assessed Comments Unknown Sex and Gender Information Value Date Recorded Sex Assigned at Not on file Legal Sex Female 2:47 AM BOBBIN HANDLER Gender Identity Not on file Sexual Orientation Not on file documented as of this encounter Plan of Treatment Upcoming Encounters Date Type Department Care Team (Late Contact Info) Description 06/05/2025 10:50 AM BOBBIN HANDLER [facility] INSTRUMENTAL TEACHER [address] [address] Tere Maddox MD [address] [place] [address] [facility] 200 [place] [address] documented as of this encounter Procedures Procedure Name Priority Date/Time Associated Diagnosis Comments CHG PNEUMOCOCCAL VACCINE <5 YO IM VFC 01/02/2003 12:00 AM CDT documented in this encounter Visit Diagnoses Not on filedocumented in this encounter Care Teams Mill Supervisor Relationship Specialty Start Date End Date Thomas Grant MD NO ADDRESS ON FILE PCP - General 06/17/06 01/13/15 documented as of this encounter
--- OUTSIDE RECORDS SUMMARY | 2024-12-15 12:43 | XMS_ITS | Encounter Summary ---
Author Organization [facility] Address [address] [place] [address] Care Team Providers Care Junk Dealer Name Role Phone Thomas Grant MD Primary Care Provider Unava ilable Encounter Details Date Type Department Care Team (Late st Contact Info) Description 02/09/2003 Outpatient Historical [facility] Pediatrics - Medical [place] [address] [facility] [address] [address] Ayaka Santo MD NO ADDRESS ON FILE Social History Tobacco Use Types Packs/Day Years Used Date Smoking Tobacco: Never Assessed Comments Unknown Sex and Gender Information Value Date Recorded Sex Assigned at Not on file Legal Sex Female 2:47 AM CORRECTIONAL CORPORAL Gender Identity Not on file Sexual Orientation Not on file documented as of this encounter Plan of Treatment Upcoming Encounters Date Type Department Care Team (Late st Contact Info) Description 06/05/2025 10:50 AM CORRECTIONAL CORPORAL Office Visit [facility] WIRE TECHNICIAN [address] [address] Tere Maddox MD [address] [place] [address] [facility] 200 [place] [address] documented as of this encounter Visit Diagnoses Not on filedocumented in this encounter Care Teams Junk Dealer Relationship Specialty Start Date End Date Thomas Grant MD NO ADDRESS ON FILE PCP - General 06/17/06 01/13/15 documented as of this encounter
--- OUTSIDE RECORDS SUMMARY | 2024-12-15 12:43 | XMS_ITS | Encounter Summary ---
Author Organization [facility] Address [address] [place] [address] Care Team Providers Care Assessment Services Manager Name Role Phone Thomas Grant MD Primary Care Provider Unava ilable Encounter Details Date Type Department Care Team (Late st Contact Info) Description 04/24/2003 Outpatient Historical [facility] Pediatrics - Medical [place] [address] [facility] [address] [address] Ayaka Santo MD NO ADDRESS ON FILE Social History Tobacco Use Types Packs/Day Years Used Date Smoking Tobacco: Never Assessed Comments Unknown Sex and Gender Information Value Date Recorded Sex Assigned at Not on file Legal Sex Female 2:47 AM HEALTH INSURANCE SALES AGENT Gender Identity Not on file Sexual Orientation Not on file documented as of this encounter Plan of Treatment Upcoming Encounters Date Type Department Care Team (Late st Contact Info) Description 06/05/2025 10:50 AM HEALTH INSURANCE SALES AGENT Office Visit [facility] INSIDE SALES ENGINEER [address] [place] [address] Tere Maddox MD [address] [place] [address] [facility] 200 [place] [address] documented as of this encounter Visit Diagnoses Not on filedocumented in this encounter Care Teams Assessment Services Manager Relationship Specialty Start Date End Date Thomas Grant MD NO ADDRESS ON FILE PCP - General 06/17/06 01/13/15 documented as of this encounter
--- OUTSIDE RECORDS SUMMARY | 2024-12-15 12:43 | XMS_ITS | Encounter Summary ---
Author Organization [facility] Address [address] [place] [address] Care Team Providers Care Sticker Operator Name Role Phone Thomas Grant MD Primary Care Provider Nancy mejia Encounter Details Date Type Department Care Team (Latest Contact Info) Description 04/20/2003 Outpatient Historical [facility] Kayden Crews MD [address] [place] [address] OTITIS MEDIA NOS (Primary Dx) Social History Tobacco Use Types Packs/Day Years Used Date Smoking Tobacco: Never Assessed Comments Unknown Sex and Gender Information Value Date Recorded Sex Assigned at Not on file Legal Sex Female 2:47 AM INFORMATION SECURITY RISK ANALYST Gender Identity Not on file Sexual Orientation Not on file documented as of this encounter Plan of Treatment Upcoming Encounters Date Type Department Care Team (Late st Contact Info) Description 06/05/2025 10:50 AM INFORMATION SECURITY RISK ANALYST Office Visit [facility] LOCKSTITCH COLLAR SETTER [address] [address] Tere Maddox MD [address] [place] [address] [address] documented as of this encounter Visit Diagnoses Diagnosis Unspecified otitis media- Primary documented in this encounter Care Teams Sticker Operator Relationship Specialty Start Date End Date Thomas Grant MD NO ADDRESS ON FILE PCP - General 06/17/06 01/13/15 documented as of this encounter
--- OUTSIDE RECORDS SUMMARY | 2024-12-15 12:43 | XMS_ITS | Encounter Summary ---
Author Organization [facility] Address [address] [place] [address] Care Team Providers Care Firmware Software Verification Engineer Name Role Phone Mckenna Byers MD Primary Care Provider Nancy ilable Encounter Details Date Type Department Care Team (Late Contact Info) Description 11/29/2008 Emergency [facility] Er, Authorized P NO ADDRESS ON FILE Social History Tobacco Use Types Packs/Day Years Used Date Smoking Tobacco: Never Assessed Comments Unknown Sex and Gender Information Value Date Recorded Sex Assigned at Not on file Legal Sex Female 2:47 AM TRANSMISSION TESTER Gender Identity Not on file Sexual Orientation Not on file documented as of this encounter Plan of Treatment Upcoming Encounters Date Type Department Care Team (Late st Contact Info) Description 06/05/2025 10:50 AM TRANSMISSION TESTER Office Visit [facility] PALEOLOGY TEACHER [address] [place] [address] Tere Maddox MD [address] [place] [address] [facility] 200 [place] [address] documented as of this encounter Procedures Procedure Name Priority Date/Time Associated Diagnosis Comments XR TIBIA AND FIBULA 2 VW RIGHT Routine 11/29/2008 12:15 PM CDT documented in this encounter Results * XR TIBIA AND FIBULA 2 VW RIGHT (11/29/2008 12:15 PM CDT) Anatomical Region Laterality Modality Lower Extremity Other 11/29/2008 12:1 5 PM CDT Narrative 11/29/2008 4:36 PM CDT [place] [address] [address] [place], [place] [address] Admit Date: 11/29/2008 GHAZAL JEROME Sex: F Admit Prov: ER, AUTHORIZED P Date: 2002 Primary Care Prov: MCKENNA BYERS CMRN: [id number] Room: ER-A SSN: IMAGING SERVICES Ordering Prov: N/A Accession Number: [id number] Interpretation Two views of the right tibia and fibula. History: Pain. Findings: There is an oblique fracture involving the tibial shaft which is nondisplaced and . The fibula appears intact. Impression: Nondisplaced tibial shaft fracture. . Dictated by: KEHINDE SAGE 11/29/2008 16:34 Electronically signed by: KEHINDE SAGE 11/29/2008 16:35 Procedure Note Kehinde Sage MD - 11/29/2008 [place] [address] [address] [place], [place] [address] Admit Date: 11/29/2008 GHAZAL JEROME Sex: F Admit Prov: ER, AUTHORIZED P Date: 2002 Primary Care Prov: ZEESHAN MCKENNA Mj CMRN: [id number] Room: ER-A SSN: IMAGING SERVICES Ordering Prov: N/A Interpretation Two views of the right tibia and fibula. History: Pain. Findings: There is an oblique fracture involving the tibial shaftwhich is nondisplaced and . The fibula appears intact. Impression: Nondisplaced tibial shaft fracture. . Dictated by: KEHINDE SAGE 11/29/2008 16:34 Electronically signed by: KEHINDE SAGE 11/29/2008 16:35 Authorized P Er DIAGNOSTIC IMAGING ORDERABLES Fi nal Result documented in this encounter Visit Diagnoses Not on filedocumented in this encounter Care Teams Firmware Software Verification Engineer Relationship Specialty Start Date End Date Mckenna Byers MD NO ADDRESS ON FILE PCP - General 06/17/06 01/13/15 documented as of this encounter
--- OUTSIDE RECORDS SUMMARY | 2024-12-15 12:43 | XMS_ITS | Encounter Summary ---
Author Organization [facility] Address [address] [place] [address] Care Team Providers Care Brand Leader Name Role Phone Thomas Grant MD Primary Care Provider Unava ilable Encounter Details Date Type Department Care Team (Late Contact Info) Description 01/24/2008 Outpatient Historical [facility] Thomas Grant MD NO ADDRESS ON FILE Cough Social History Tobacco Use Types Packs/Day Years Used Date Smoking Tobacco: Never Assessed Comments Unknown Sex and Gender Information Value Date Recorded Sex Assigned at Not on file Legal Sex Female 2:47 AM OFFICE SUPPORT Gender Identity Not on file Sexual Orientation Not on file documented as of this encounter Plan of Treatment Upcoming Encounters Date Type Department Care Team (Late st Contact Info) Description 06/05/2025 10:50 AM OFFICE SUPPORT Office Visit [facility] SURG PHYSICIAN ASST [address] [place] [address] Tere Maddox MD [address] [place] [address] [facility] 200 [place] [address] documented as of this encounter Visit Diagnoses Diagnosis Cough documented in this encounter Care Teams Brand Leader Relationship Specialty Start Date End Date Thomas Grant MD NO ADDRESS ON FILE PCP - General 06/17/06 01/13/15 documented as of this encounter
--- OUTSIDE RECORDS SUMMARY | 2024-12-15 12:43 | XMS_ITS | Encounter Summary ---
Author Organization [facility] Address [address] [place] [address] Care Team Providers Care Screen Printing Stencil Preparer Name Role Phone Thomas Grant MD Primary Care Provider Unava ilable Encounter Details Date Type Department Care Team (Late st Contact Info) Description 04/06/2003 Emergency [facility] [place] Er, Authorized P NO ADDRESS ON FILE OTITIS MEDIA NOS (Primary Dx) Social History Tobacco Use Types Packs/Day Years Used Date Smoking Tobacco: Never Assessed Comments Unknown Sex and Gender Information Value Date Recorded Sex Assigned at Not on file Legal Sex Female 2:47 AM SWIMMING POOL MAINTENANCE Gender Identity Not on file Sexual Orientation Not on file documented as of this encounter Plan of Treatment Upcoming Encounters Date Type Department Care Team (Late st Contact Info) Description 06/05/2025 10:50 AM SWIMMING POOL MAINTENANCE Office Visit [facility] LOG SAWYER [address] [address] Tere Maddox MD [address] [place] [address] [facility] 200 [place] [address] documented as of this encounter Visit Diagnoses Diagnosis Unspecified otitis media- Primary documented in this encounter Care Teams Screen Printing Stencil Preparer Relationship Specialty Start Date End Date Thomas Grant MD NO ADDRESS ON FILE PCP - General 06/17/06 01/13/15 documented as of this encounter
--- OUTSIDE RECORDS SUMMARY | 2024-12-15 12:43 | XMS_ITS | Encounter Summary ---
Author Organization [facility] Address [address] [place] [address] Care Team Providers Care Entertainment Lawyer Name Role Phone Thomas Grant MD Primary Care Provider Unava ilable Encounter Details Date Type Department Care Team (Late st Contact Info) Description 03/19/2003 Emergency [facility] Lorri Vasquez MD NO ADDRESS ON FILE Er, Authorized P NO ADDRESS ON FILE OTITIS MEDIA NOS (Primary Dx) Social History Tobacco Use Types Packs/Day Years Used Date Smoking Tobacco: Never Assessed Comments Unknown Sex and Gender Information Value Date Recorded Sex Assigned at Not on file Legal Sex Female 2:47 AM DIRECTOR OF INDIVIDUAL GIVING Gender Identity Not on file Sexual Orientation Not on file documented as of this encounter Plan of Treatment Upcoming Encounters Date Type Department Care Team (Late st Contact Info) Description 06/05/2025 10:50 AM DIRECTOR OF INDIVIDUAL GIVING Office Visit [facility] MUTUAL FUND SALES AGENT [address] [address] Tere Maddox MD [address] [place] [address] [facility] 200 [place] [address] documented as of this encounter Visit Diagnoses Diagnosis Unspecified otitis media- Primary documented in this encounter Care Teams Entertainment Lawyer Relationship Specialty Start Date End Date Thomas Grant MD NO ADDRESS ON FILE PCP - General 06/17/06 01/13/15 documented as of this encounter
--- OUTSIDE RECORDS SUMMARY | 2024-12-15 12:43 | XMS_ITS | Encounter Summary ---
Author Organization [facility] Address [address] [place] [address] Care Team Providers Care Customer Engagement Manager Name Role Phone Thomas Grant MD Primary Care Provider Nancy ilable Encounter Details Date Type Department Care Team (Latest Contact Info) Description 06/22/2003 Outpatient Historical HIS [facility] Ayaka Carmen MD NO ADDRESS ON FILE ROUTIN CHILD HEALTH EXAM (Primary Dx) Social History Tobacco Use Types Packs/Day Years Used Date Smoking Tobacco: Never Assessed Comments Unknown Sex and Gender Information Value Date Recorded Sex Assigned at Not on file Legal Sex Female 2:47 AM OFFICE ADMINISTRATIVE ASSISTANT Gender Identity Not on file Sexual Orientation Not on file documented as of this encounter Plan of Treatment Upcoming Encounters Date Type Department Care Team (Late st Contact Info) Description 06/05/2025 10:50 AM OFFICE ADMINISTRATIVE ASSISTANT Office Visit [facility] CASING FLUID TENDER [address] [place] [address] Tere Maddox MD [address] [place] [address] [facility] [address] [place] [address] documented as of this encounter Visit Diagnoses Diagnosis Routine or child health check- Primary documented in this encounter Care Teams Customer Engagement Manager Relationship Specialty Start Date End Date Thomas Grant MD NO ADDRESS ON FILE PCP - General 06/17/06 01/13/15 documented as of this encounter
--- OUTSIDE RECORDS SUMMARY | 2024-12-15 12:43 | XMS_ITS | Encounter Summary ---
Author Organization [facility] Address [address] [place] [address] Care Team Providers Care Food Demonstrator Name Role Phone Thomas Grant MD Primary Care Provider Unava ilable Encounter Details Date Type Department Care Team (Late Contact Info) Description 2002 Outpatient Historical [facility] Pediatrics - Medical [place] [address] [facility] [address] [address] Ayaka Santo MD NO ADDRESS ON FILE Social History Tobacco Use Types Packs/Day Years Used Date Smoking Tobacco: Never Assessed Comments Unknown Sex and Gender Information Value Date Recorded Sex Assigned at Not on file Legal Sex Female 2:47 AM AUTO DEALER Gender Identity Not on file Sexual Orientation Not on file documented as of this encounter Plan of Treatment Upcoming Encounters Date Type Department Care Team (Late Contact Info) Description 06/05/2025 10:50 AM AUTO DEALER Office Visit [facility] WILDLIFE BIOLOGIST [address] [address] Tere Maddox MD [address] [place] [address] [facility] [address] [place] [address] documented as of this encounter Procedures Procedure Name Priority Date/Time Associated Diagnosis Comments CHG POLIOVIRUS IPV VFC 3 12:00 AM CDT CHG DTAP VACCINE <7 YO IM VFC 2002 12:00 AM CDT documented in this encounter Visit Diagnoses Not on filedocumented in this encounter Care Teams Food Demonstrator Relationship Specialty Start Date End Date Thomas Grant MD NO ADDRESS ON FILE PCP - General 06/17/06 01/13/15 documented as of this encounter
--- OUTSIDE RECORDS SUMMARY | 2024-12-15 12:43 | XMS_ITS | Encounter Summary ---
Author Organization [facility] Address [address] [place] [address] Care Team Providers Care Acid Strength Inspector Name Role Phone Thomas Grant MD Primary [...] on file Legal Sex Female 2:47 AM FLOUR BLENDER HELPER Gender Identity Not on file Sexual Orientation Not on file documented as of this encounter Plan of Treatment Upcoming Encounters Date Type Department Care Team (Late st Contact Info) Description 06/05/2025 10:50 AM FLOUR BLENDER HELPER Office Visit [facility] RESTAURANT KITCHEN MANAGER [address] [place] [address] Tere Maddox MD [address] [place] [address] [facility] [address] [place] [address] documented as of this encounter Visit Diagnoses Diagnosis Abdominal pain, unspecified site documented in this encounter Care Teams Acid Strength Inspector Relationship Specialty Start Date End Date Thomas Grant MD NO ADDRESS ON FILE PCP - General 06/17/06 01/13/15 documented as of this encounter
--- OUTSIDE RECORDS SUMMARY | 2024-12-15 12:43 | XMS_ITS | Encounter Summary ---
Author Organization [facility] Address [address] [place] [address] Care Team Providers Care Dairy Cattle Farm Worker Name Role Phone Thomas Grant MD Primary Care Provider Unava ilable Encounter Details Date Type Department Care Team (Late Contact Info) Description 2002 Outpatient Historical [facility] Pediatrics - Medical [place] [address] [facility] [address] [address] Ayaka Santo MD NO ADDRESS ON FILE Social History Tobacco Use Types Packs/Day Years Used Date Smoking Tobacco: Never Assessed Comments Unknown Sex and Gender Information Value Date Recorded Sex Assigned at Not on file Legal Sex Female 2:47 AM FRONT END MANAGER Gender Identity Not on file Sexual Orientation Not on file documented as of this encounter Plan of Treatment Upcoming Encounters Date Type Department Care Team (Late Contact Info) Description 06/05/2025 10:50 AM FRONT END MANAGER Office Visit [facility] SUPERVISOR ESTIMATOR AND DRAFTER [address] [address] Tere Maddox MD [address] [place] [address] [facility] 200 [place] [address] documented as of this encounter Procedures Procedure Name Priority Date/Time Associated Diagnosis Comments CHG POLIOVIRUS IPV VFC 3 12:00 AM CDT CHG DTAP VACCINE <7 YO IM VFC 2002 12:00 AM CDT documented in this encounter Visit Diagnoses Not on filedocumented in this encounter Care Teams Dairy Cattle Farm Worker Relationship Specialty Start Date End Date Thomas Grant MD NO ADDRESS ON FILE PCP - General 06/17/06 01/13/15 documented as of this encounter
--- OUTSIDE RECORDS SUMMARY | 2024-12-15 12:43 | XMS_ITS | Encounter Summary ---
Author Organization [facility] Address [address] [place] [address] Care Team Providers Care Health Outcomes Liaison Name Role Phone Thomas Grant MD Primary Care Provider Unava ilable Encounter Details Date Type Department Care Team (Late st Contact Info) Description 03/18/2003 Outpatient Historical [facility] Pediatrics - Medical [place] [address] [facility] [address] [address] Ayaka Santo MD NO ADDRESS ON FILE Social History Tobacco Use Types Packs/Day Years Used Date Smoking Tobacco: Never Assessed Comments Unknown Sex and Gender Information Value Date Recorded Sex Assigned at Not on file Legal Sex Female 2:47 AM PEER SPECIALIST Gender Identity Not on file Sexual Orientation Not on file documented as of this encounter Plan of Treatment Upcoming Encounters Date Type Department Care Team (Late st Contact Info) Description 06/05/2025 10:50 AM PEER SPECIALIST Office Visit [facility] DIE KEEPER [address] [address] Tere Maddox MD [address] [place] [address] [facility] 200 [place] [address] documented as of this encounter Visit Diagnoses Not on filedocumented in this encounter Care Teams Health Outcomes Liaison Relationship Specialty Start Date End Date Thomas Grant MD NO ADDRESS ON FILE PCP - General 06/17/06 01/13/15 documented as of this encounter
--- OUTSIDE RECORDS SUMMARY | 2024-12-15 12:43 | XMS_ITS | Encounter Summary ---
Author Organization [facility] Address [address] [place] [address] Care Team Providers Care Infection Preventionist Name Role Phone Thomas Grant MD Primary Care Provider Unava ilable Encounter Details Date Type Department Care Team (Late Contact Info) Description 10/03/2006 Inpatient Historical [facility] Irvin Arechiga MD [address] [facility] [place] [address] Thomas Grant MD NO ADDRESS ON FILE Urinary Tract Infection, Site not Specified (Primary Dx) Social History Tobacco Use Types Packs/Day Years Used Date Smoking Tobacco: Never Assessed Comments Unknown Sex and Gender Information Value Date Recorded Sex Assigned at Not on file Legal Sex Female 2:47 AM CASINO ATTENDANT Gender Identity Not on file Sexual Orientation Not on file documented as of this encounter Plan of Treatment Upcoming Encounters Date Type Department Care Team (Late Contact Info) Description 06/05/2025 10:50 AM CASINO ATTENDANT Office Visit [facility] THERAPY AIDE [address] [address] Tere Maddox MD [address] [place] [address] [address] documented as of this encounter Visit Diagnoses Diagnosis Urinary tract infection, site not specified- Primary documented in this encounter Care Teams Infection Preventionist Relationship Specialty Start Date End Date Thomas Gratn MD NO ADDRESS ON FILE PCP - General 06/17/06 01/13/15 documented as of this encounter
--- OUTSIDE RECORDS SUMMARY | 2024-12-15 12:43 | XMS_ITS | Encounter Summary ---
Author Organization [facility] Address 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 Gender Identity Not on file Sexual Orientation Not on file documented as of this encounter Plan of Treatment Upcoming Encounters Date Type Department Care Team (Late st Contact Info) Description 06/05/2025 10:50 AM LINECASTING MACHINE KEYBOARD OPERATOR Office Visit [facility] GROUND PRODUCTS DIRECTOR [address] [place] [address] Tere Maddox MD [address] [place] [address] [facility] [address] [place] [address] documented as of this encounter Visit Diagnoses Diagnosis Urinary tract infection, site not specified documented in this encounter Care Teams Lock Assembler Relationship Specialty Start Date End Date Thomas Grant MD NO ADDRESS ON FILE PCP - General 06/17/06 01/13/15 documented as of this encounter
--- OUTSIDE RECORDS SUMMARY | 2024-12-15 12:43 | XMS_ITS | Encounter Summary ---
Author Organization [facility] Address [address] [place] [address] Care Team Providers Care Police Liaison Officer Name Role Phone Thomas Grant MD Primary Care Provider Unava ilable Encounter Details Date Type Department Care Team (Late st Contact Info) Description 2002 Outpatient Historical [facility] Pediatrics - Medical [place] [address] [facility] [address] [address] Ayaka Santo MD NO ADDRESS ON FILE Social History Tobacco Use Types Packs/Day Years Used Date Smoking Tobacco: Never Assessed Comments Unknown Sex and Gender Information Value Date Recorded Sex Assigned at Not on file Legal Sex Female 2:47 AM TAX ANALYST Gender Identity Not on file Sexual Orientation Not on file documented as of this encounter Plan of Treatment Upcoming Encounters Date Type Department Care Team (Late st Contact Info) Description 06/05/2025 10:50 AM TAX ANALYST Office Visit [facility] MODEL MAKER APPRENTICE [address] [address] Tere Maddox MD [address] [place] [address] [facility] [address] [place] [address] documented as of this encounter Visit Diagnoses Not on filedocumented in this encounter Care Teams Police Liaison Officer Relationship Specialty Start Date End Date Thomas Grant MD NO ADDRESS ON FILE PCP - General 06/17/06 01/13/15 documented as of this encounter
--- OUTSIDE RECORDS SUMMARY | 2024-12-15 12:43 | XMS_ITS | Encounter Summary ---
Author Organization [facility] Address [address] [place] [address] Care Team Providers Care Records Clerk Name Role Phone Thomas Grant MD Primary Care Provider Unava ilable Encounter Details Date Type Department Care Team (Late st Contact Info) Description 04/11/2007 Orders Only [facility] - [facility] [address] [facility] [address] [place] [address] Thomas Grant MD NO ADDRESS ON FILE Social History Tobacco Use Types Packs/Day Years Used Date Smoking Tobacco: Never Assessed Comments Unknown Sex and Gender Information Value Date Recorded Sex Assigned at Not on file 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 Gender Identity Not on file Sexual Orientation Not on file documented as of this encounter Plan of Treatment Upcoming Encounters Date Type Department Care Team (Late st Contact Info) Description 06/05/2025 10:50 AM TOOL DISPATCHER Office Visit [facility] APPLICATIONS SUPPORT LEAD [address] [place] [address] Tere Maddox MD [address] [place] [address] [facility] [address] [place] [address] documented as of this encounter Visit Diagnoses Not on filedocumented in this encounter Care Teams Records Clerk Relationship Specialty Start Date End Date Thomas Grant MD NO ADDRESS ON FILE PCP - General 06/17/06 01/13/15 documented as of this encounter
--- OUTSIDE RECORDS SUMMARY | 2024-12-15 12:43 | XMS_ITS | Encounter Summary ---
Author Organization [facility] Address [address] [place] [address] Care Team Providers Care Seasonal Retail Merchandiser Name Role Phone Thomas Grant MD Primary Care Provider Unava ilable Encounter Details Date Type Department Care Team (Late Contact Info) Description 01/02/2003 Outpatient Historical [facility] Pediatrics - Medical [place] [address] [facility] [address] [address] Ayaka Santo MD NO ADDRESS ON FILE Social History Tobacco Use Types Packs/Day Years Used Date Smoking Tobacco: Never Assessed Comments Unknown Sex and Gender Information Value Date Recorded Sex Assigned at Not on file 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 Gender Identity Not on file Sexual Orientation Not on file documented as of this encounter Plan of Treatment Upcoming Encounters Date Type Department Care Team (Late Contact Info) Description 06/05/2025 10:50 AM ELECTRIC CONTAINER TESTER Office Visit [facility] SOCIAL WORK NURSE [address] [address] Tere Maddox MD [address] [place] [address] [facility] 200 [place] [address] documented as of this encounter Procedures Procedure Name Priority Date/Time Associated Diagnosis Comments CHG POLIOVIRUS IPV VFC 01/02/2003 12:00 AM CDT documented in this encounter Visit Diagnoses Not on filedocumented in this encounter Care Teams Seasonal Retail Merchandiser Relationship Specialty Start Date End Date Thomas Grant MD NO ADDRESS ON FILE PCP - General 06/17/06 01/13/15 documented as of this encounter
[2024-12-15 12:50] VITALS: BP 137/96; PULSE 117; RESP 18; TEMP 36.8; O2SAT 100
--- NOTE | 2024-12-15 13:00 | ED_ITS ---
HPI - URI/Sore Throat General Chief Complaint: Upper Respiratory Infection Stated Complaint: chills,congestion,cough,head pressure Time Seen by Provider: 12/15/24 13:00 Source: patient, RN notes reviewed and old records reviewed Mode of arrival: ambulatory Limitations: no limitations History of Present Illness HPI Narrative: 24 year old female who presents to [facility] care with complaints of sinus pressure with nasal congestion, sore throat, nausea with decreased appetite,and non-productive frequent cough since Sunday morning. Patient reports that she has not had any known fevers, chills or sweats. She states that her father has also been ill with similar symptoms. Patient reports that she has been taking DayQuil , NyQuil, and Ibuprofen for her symptoms without resolution MD elicited complaint: cough, rhinorrhea, nasal congestion and sinus pain Pertinent past history: other (migraines) Onset (ago): day(s) (2 days ago) Pain scale (0-10): 2 Able to tolerate fluids by mouth: Yes Treatments prior to arrival: ibuprofen and other (DayQuil NyQuil) Related Data Home Medications ?Medication ?Instructions ?Recorded ?Confirmed ?Last Taken ?Type albuterol 90 mcg/actuation aerosol mcg inhalation 07/09 10/30 Unknown History inhaler amitriptyline 25 mg tablet mg 12/15/24 Unknown Histor y buspirone 10 mg tablet mg 12/15/24 Unknown History dextroamphetamine-amphetamine ER PO 12/15/24 Unknown History 10 mg 24hr capsule,extend release trazodone 100 mg tablet mg 12/15/24 Unknown History Allergies Allergy/AdvReac Type Severity Reaction Status Date / Time No Known Allergies Allergy Verified 12/15/24 12:50 Review of Systems Review of Systems: CONSTITUTIONAL: Reports malaise, chills, sweats, or fever. EYES: Denies visual changes, redness, or discharge. ENT: Reports rhinorrhea, congestion, sinus pain, no otalgia and positive for sore throat. CARDIOVASCULAR: Denies chest pain, palpitations, or edema. RESPIRATORY: Reports cough.? Denies dyspnea. GASTROINTESTINAL: Denies abdominal pain, nausea, vomiting, diarrhea SKIN: Denies rash or itching. MUSCULOSKELETAL: Denies myalgia. NEUROLOGIC: Denies headache. All systems reviewed & are unremarkable except as noted in HPI and below [facility] Past Medical History Medical History (Updated 12/16/24 @ 15:46 by oLrri Albarran NP) Hx of migraines Asthma Surgical History Surgical History History of orthopedic surgery Right leg Social History Social History (Updated 12/16/24 @ 15:46 by Lorri Albarran NP) Smoking status: Never smoker Alcohol intake: current Alcohol use details: social Substance use type: does not use Living arrangements: with family Gender identity (if verbalized by the patient): Female Comments At time of signature, agree with nursing past medical, surgical, social and family history. There is no relevant family history pertinent to the presenting complaint Exam Narrative: GENERAL: Well-appearing, well-nourished, and in no acute distress. HEAD: Normocephalic EYES: PERRLA, conjunctivae clear ENT: Nares clear, turbinates edematous and erythematous, yellow discharge. Mucous membranes moist. TM pearly tavares with dull light reflex bilaterally; no tragal tenderness. Oropharynx erythematous without lesions. Tonsils not enlarged and without exudate, no drooling, no hoarseness, no trismus, uvula midline.post nasal drainage NECK: Supple. No lymphadenopathy CHEST: Clear to auscultation, breath sounds equal. No wheezing, rhonchi, rales, or stridor. No respiratory distress, speaks in full sentences.SAO2 100% on room air HEART: Regular rate and rhythm. No murmur heard. SKIN: Warm, dry, no rash. NEURO: Alert and oriented x3. PSYCH: Normal mood and affect Course Course Emergency Course: Patient is aware of diagnosis, understands and agrees to treatment plan.? Anticipatory guidance given.? Patient agrees to follow-up as directed and is aware of reasons to seek care at the emergency department. Portions of this record may have been created with voice recognition software Level of Care: Express Care Visit Vital Signs Vital signs: Vital Signs Temperature 36.8 C 12/15/24 12:50 Pulse Rate 117 H 12/15/24 12:50 Respiratory Rate 18 12/15/24 12:50 Blood Pressure 137/96 H 12/15/24 12:50 Pulse Oximetry 100 12/15/24 12:50 Oxygen Delivery Room Air 12/15/24 12:50 Temperature 36.8 C 12/15/24 12:50 Pulse Rate 117 H 12/15/24 12:50 Respiratory Rate 18 12/15/24 12:50 Blood Pressure 137/96 H 12/15/24 12:50 Pulse Oximetry 100 12/15/24 12:50 Oxygen Delivery Room Air 12/15/24 12:50 reviewed MDM - URI/Sore Throat MDM Narrative Medical decision making narrative: Differential diagnosis considered: Hamm virus, strep pharyngitis, allergic rhinitis, upper respiratory tract infection, sinusitis, rhinosinusitis, nasopharyngitis. viral pharyngitis, otitis media, otitis externa, pneumonia, bronchitis, viral cough syndrome, viral syndrome, and influenza.? Exam findings show no acute concerns or changes; patient is non-toxic appearing and is in no distress.? Patient is appropriate for outpatient treatment and follow-up. Differential Diagnosis Differential diagnosis: Likely upper respiratory infection and sinusitis Medical Records Attestation: I reviewed the patient's medical records. Lab Data Attestation: I reviewed the patient's lab results. Lab results narrative: strep negative, culture sent, Influenza A negative, Influenza B negative, COVID antigen negative Labs: Lab Results 12/15/24 12/15/24 Range/Units 13:10 13:16 POC Influenza A Ag Negative (Negative) POC Influenza B Ag Negative (Negative) POC SARS CoV-2 Ag Negative (Negative) POC Grp A Strep Screen Negative (Negative) reviewed Critical Care Time Critical Care Time Critical Care Time: No Discharge Plan Discharge Clinical Impression: URI with cough and congestion Patient Disposition: Home Condition: Stable Instructions: Antibiotic Form, Upper Respiratory Infection (ED), Acute Cough (ED) Additional Instructions: Increase fluids especially juices and water [id number] cough and cold medicine of your choice for your symptoms Zyrtec, Claritin or Jaz may include plain Sudafed daily Cough tablets as directed for cough--do not bite, chew or suck on--swallow whole Continue your inhaler/nebulizer as directed Steroids as directed--take with food heat to the face 20-30 minutes 4-6 times a day for pain Salt water gargles, throat lozenges or throat sprays as desired If your symptoms persist, change or worsen significantly before you can contact your personal physician then please, without delay, go to the emergency depar tment for further evaluation. Follow-up with PCP in 7-10 days or sooner if needed Follow up with PCP soon in regards to your blood pressure which is elevated above threshold for referral. Blood pressure above 120/80 may indicate pre- hypertension. 137/96 Patient Language: Turkish Prescriptions: New prednisone 20 mg tablet 20 mg PO BID 5 Days Qty: 10 0RF No Action albuterol 90 mcg/actuation Aerosol INHALATION amitriptyline 25 mg tablet trazodone 100 mg tablet buspirone 10 mg tablet dextroamphetamine-amphetamine 10 mg capsule,extended release 24hr PO Follow-up/Referrals: Lance,Kirsten [Other] Stand Alone Forms: Work/School Release IP Time of Disposition: 13:24 Quality [place] Coma Scale Eyes: Open Verbal: Oriented and Alert Motor: Follows Commands Daniella Coma Total Score: 15
[2024-12-15 13:12] LABS: EDSTREPNEGPOS1 Negative (Negative)
[2024-12-15 13:20] LABS: EDCOVIDSCREEN Negative (Negative); EDINFLUASCREEN Negative (Negative); EDINFLUBSCREEN Negative (Negative)
== END 2024-12-15 13:33 | disposition home or self-care (01) ==
PROVIDERS: Emergency Provider Registered Nurse
DX: J02.0 Streptococcal pharyngitis (principal); R05.9 Cough, unspecified; Z20.822 Contact with and (suspected) exposure to COVID-19; J45.909 Unspecified asthma, uncomplicated
CPT/HCPCS: 87081; 87426; 87804; 87880; 99213; G0463